=== PATIENT | male | born 1990 | race Caucasian/White ===

== ENCOUNTER 2019-03-07 16:14 | Emergency (ER) | payer BC, SELFPAY ==
[2019-03-07 16:40] VITALS: BP 122/81; PULSE 72; RESP 18; TEMP 36.9; O2SAT 99; BMI 26.4
--- NOTE | 2019-03-07 17:37 | XR_ITS ---
WS: [id number] PROCEDURE: XR chest 2V* [id number] CLINICAL INFORMATION: cp COMPARISON: None. FINDINGS: Heart: Normal cardiac silhouette. Lungs: Lungs are clear. No consolidation or pleural fluid. Bones: Normal visualized bony structures. XR/XR chest 2V* [id number] IMPRESSION: Normal chest
[2019-03-07 19:22] VITALS: PULSE 75; RESP 16; O2SAT 100
--- NOTE | 2019-03-07 19:25 | ED_ITS ---
Entered by Aleja Peters, acting as scribe for Alexandru Ying MD Mar 07, 2019 16:14 HPI - Chest Pain General: Chief Complaint: Chest Pain Stated Complaint: Chest pain, dizzy/n Time Seen by Provider: 03/07/19 19:23 Source: patient and RN notes reviewed Limitations: no limitations History of Present Illness: HPI narrative: 29 yo male presents to ED with complaints of L sided chest pain. He said the pain began at 0630 this morning and he has had the pain all day. He describes the pain as sharp and under his L breast. He said he has had L sided abdominal pain that is different from chest pain. The patient denies SOB. The patient has no PCP. MD complaint: chest pain Onset (ago): hour(s) (13) Timing of current episode: constant and still present Prior episodes: No Onset: during rest Pain location: left chest Pain radiation: none Severity: moderate Quality: sharp Relieving factors: nothing Exacerbating factors: nothing Associated symptoms: Reports no associated symptoms; Deny dyspnea, fever(s), nausea or vomiting Treatment prior to arrival: none Risk Factors: Coronary artery disease risk factors: none Thoracic aortic dissection risk factors: none Review of Systems Const: Denies: fever, chills, body aches or change in appetite Eyes: Denies: blurry vision or eye discomfort ENMT: Denies: throat pain or dental pain Card: Reports: chest pain Resp: Denies: shortness of breath GI: Denies: nausea, vomiting or diarrhea : Denies: painful urination Musc: Denies: neck pain or back pain Skin/Breast: Denies: rash Neuro: Denies: headache Psych: Denies: depression Christian/Lymph: Denies: easy bruising All/Imm: Denies: hives PFSH ED PFSH: Statuses (acute, chronic, etc) shown below reflect problem list status as previously entered and may not be historically accurate Social History Smoking and tobacco status: never smoked Physical Exam Const: COMMON NORMALS: no apparent distress, oriented x3 and healthy appearing HENMT: COMMON NORMALS: normocephalic and head/scalp atraumatic HEAD & SCALP: normocephalic and atraumatic Eye: COMMON NORMALS: PERRL and EOMs intact bilaterally PUPIL: Yes PERRL Neck/C-Spine: COMMON NORMALS: full ROM and supple Chest: COMMONS NORMALS: inspection of chest normal and palpation of chest normal Resp: COMMON NORMALS: normal respiratory effort, no retractions, no use of accessory muscles and clear to auscultation bilaterally AUSCULTATION: clear to auscultation bilaterally Cardio: COMMON NORMALS: regular rate, regular rhythm and no murmurs RATE: regular rate RHYTHM: regular rhythm GI: COMMON NORMALS: normal to inspection, nondistended, normoactive bowel sounds, soft to palpation, non-tender and no masses PALPATION: Yes soft Extremity: COMMON NORMALS: normal to inspection and full ROM Neuro: COMMON NORMALS: oriented x3, moves all extremities and no focal motor deficits Psych: COMMON NORMALS: mental status grossly normal, thought process normal and cooperative THOUGHT PROCESS: normal thought process Skin: COMMON NORMALS: no rashes or lesions noted and no wounds GENERAL SKIN EXAM: no rashes or lesions noted Course Vital Signs: Vital signs: Vital Signs Temperature 98.2 F 03/07/19 20:46 Pulse Rate 72 03/07/19 20:46 Respiratory Rate 16 03/07/19 20:46 Blood Pressure 133/84 03/07/19 20:46 Pulse Oximetry 98 03/07/19 20:46 MDM - Chest Pain MDM Narrative: Medical decision making narrative: Patient presents here with chest pain that is atypical in nature. Patient's heart score is 0 and he is young and healthy. Patient is well-appearing here. And initial troponin and EKG are normal. Patient is stable for discharge and is to follow-up with primary care doctor in 3 to 5 days and return to ER if worsening. Lab Data: Labs: Lab Results 03/07/19 03/07/19 03/07/19 Range/Units 19:40 19:40 19:40 WBC 5.3 (4.0-10.0) 10^3/ uL RBC 4.48 (4.1-5.3) 10^6/u L Hgb 13.9 (11.7-16.6) g/dL Hct 40.9 L (42.0-52.0) % MCV 91.3 (80-94) fL MCH 31.0 (28.0-34.0) pg MCHC 34.0 (30.0-36.0) g/dL RDW 11.4 L (12.1-15.1) % Plt Count 244 (130-400) 10^3/c mm MPV 10.3 (7.4-10.4) fL Neut % (Auto) 43.5 % Lymph % (Auto) 43.0 % [place] % (Auto) 10.9 % Eos % (Auto) 1.5 % Baso % (Auto) 0.9 % Neut # (Auto) 2.3 (1.8-7.7) 10^3/u L Lymph # (Auto) 2.3 (0.8-4.8) 10^3/u L [place] # (Auto) 0.6 (0.2-0.9) 10^3/u L Eos # (Auto) 0.1 (0.0-0.8) 10^3/u L Baso # (Auto) 0.1 (0.0-0.1) 10^3/u L Nucleated RBC % (a uto) 0 % Nucleated RBCs # 0.0 /100WBC Sodium 138 (136-145) mmol/L Potassium 4.2 (3.5-5.1) mmol/L Chloride 100 (98-107) mmol/L Carbon Dioxide 26 (22-29) mmol/L Anion Gap 16.2 (5-19) BUN 10 (6-20) mg/dL Creatinine 0.8 (0.7-1.2) mg/dL GFR Calculation 116.0 (90-130) mL/min Glucose 107 (74-109) mg/dL Calcium 10.0 (8.5-10.5) mg/dL Total Bilirubin 0.4 (0.15-1.2) mg/dL AST 19 (0-40) U/L ALT 18 (0-41) U/L Alkaline Phosphata se 51 (40-130) IU/L Troponin T Baselin e 9 (0-15) ng/mL Total Protein 7.7 (6.6-8.7) g/dL Albumin 4.8 (3.5-5.2) g/dL Globulin 2.9 (1.3-4.6) g/dL Imaging Data^: CXR: Attestation: I personally reviewed and interpreted this imaging study as follows: My impression: no acute abnormality EKG Data^: EKG 1: Attestation: I personally reviewed and interpreted this EKG as follows: EKG interpretation date: 03/07/19 EKG interpretation time: 20:13 Interpretation: nsr hr [address] or t wave abnormality qrs 113 qtc 393 Discharge Plan Discharge Patient Disposition: Home, Self-Care Clinical Impression: Chest pain Qualifiers: Chest pain type: unspecified Qualified Code(s): R07.9 - Chest pain, unspecified Condition: Stable Discharge Orders: Discharge Order (Routine); Ordered 03/07/19 Ordered By: Alexandru Ying Referrals: Blane Pichardo FNP [Family Provider] - Discharge Diet: Advance as tolerated Discharge Activity: Resume usual activity Patient Instructions: Chest Pain (ED) Discharge Date/Time: 03/07/19 20:47 Coding Level of Care Code ED Machine Inspector for Chg Fwd The documentation recorded by the Lorraine cespedes Valerie R, accurately ref lects the service I personally performed and the decisions made by Stepan de la rosa Korby, MD Mar 07, 2019 16:14
--- NOTE | 2019-03-07 19:26 | PC.NURSE ---
Patient reports that he began to get chest pain this morning in the left lower side of his chest. Patient states these pains began this morning. Patient reports that he has had dizziness that comes and goes. Patient also reports the pain is sharp. Patient has no other symptoms.
--- NOTE | 2019-03-07 19:29 | ECG_ITS ---
Measurements Intervals [place] Rate: 70 P: 26 NE: 150 QRS: 55 QRSD: 113 T: 18 QT: 372 QTc: 404 SINUS RHYTHM Incomplete right bundle branch block NONSPECIFIC ST & T-WAVE ABNORMALITY No previous ECG available for comparison Electronically Signed On 03-08-2019 16:17:06 JOB RECRUITER by aJmeel Rojo M.D. [id number]
[2019-03-07 19:54] LABS: Basophils # 0.1 10^3/uL (0.0-0.1); Basophils % 0.9 %; Eosinophils # 0.1 10^3/uL (0.0-0.8); Eosinophils % 1.5 %; Hematocrit 40.9 % (42.0-52.0); Hemoglobin 13.9 g/dL (11.7-16.6); Lymphocytes # 2.3 10^3/uL (0.8-4.8); Mean Corpuscular Volume 91.3 fL (80-94); Mean Platelet Volume 10.3 fL (7.4-10.4); Monocytes # 0.6 10^3/uL (0.2-0.9); Monocytes % 10.9 %; Neutrophils # 2.3 10^3/uL (1.8-7.7); Neutrophils % 43.5 %; Nucleated Red Blood Cells % 0 %; Platelet Count 244 10^3/cmm (130-400); Red Blood Count 4.48 10^6/uL (4.1-5.3); Red Cell Distribution Width 11.4 % (12.1-15.1); White Blood Count 5.3 10^3/uL (4.0-10.0)
[2019-03-07] MEDS: ketorolac 30 mg/mL INJ IM (20:06)
[2019-03-07 20:23] LABS: Alanine Aminotransferase 18 U/L (0-41); Albumin Level 4.8 g/dL (3.5-5.2); Alkaline Phosphatase 51 IU/L (40-130); Anion Gap 16.2 (5-19); Aspartate Amino Transferase 19 U/L (0-40); Blood Urea Nitrogen 10 mg/dL (6-20); Carbon Dioxide 26 mmol/L (22-29); Chloride 100 mmol/L (98-107); Globulin 2.9 g/dL (1.3-4.6); Glucose 107 mg/dL (74-109); Potassium 4.2 mmol/L (3.5-5.1); Sodium 138 mmol/L (136-145); Total Bilirubin 0.4 mg/dL (0.15-1.2); Total Protein 7.7 g/dL (6.6-8.7)
[2019-03-07 20:26] LABS: Troponin(5th) Baseline 9 ng/mL (0-15)
[2019-03-07 20:46] VITALS: BP 133/84; PULSE 72; RESP 16; TEMP 36.8; O2SAT 98
== END 2019-03-07 20:47 | disposition home or self-care (01) ==
PROVIDERS: Emergency Provider Emergency Medicine; Family Provider Nurse Practitioner Family
DX: R07.9 Chest pain, unspecified (principal)
CPT/HCPCS: 36415; 71046; 80053; 84484; 85025; 93005; 96372; 99281; 99283; J1885

== ENCOUNTER → 2020-03-16 13:53 | Outpatient (BNVA) | payer BC, SELFPAY | PROVIDERS: Family Provider Nurse Practitioner Family; Visit Provider Specialist | DX: K01.1 Impacted teeth (principal); K08.89 Other specified disorders of teeth and supporting structures; F17.220 Nicotine dependence, chewing tobacco, uncomplicated | CPT/HCPCS: 99202 ==

== ENCOUNTER → 2020-09-04 09:19 | Outpatient (BNVA) | payer BC, SELFPAY | PROVIDERS: Family Provider Nurse Practitioner Family; Visit Provider Specialist | DX: M79.7 Fibromyalgia (principal); Z71.89 Other specified counseling; F17.220 Nicotine dependence, chewing tobacco, uncomplicated | CPT/HCPCS: 20552; J1030; J3490 ==

== ENCOUNTER 2022-02-19 10:37 | Inpatient (IN) | payer OTHER, SELFPAY ==
[2022-02-19] VITALS (125 sets, daily range): BP systolic 92–138; BP diastolic 49–78; PULSE 85–101; RESP 19–27; TEMP 37.1–39.4; O2SAT 92–99; BMI 25.8; BMI 26.0
--- NOTE | 2022-02-19 11:00 | ECG_ITS ---
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 Measurements Intervals [place] Rate: 89 P: 25 OK: 143 QRS: 105 QRSD: 93 T: 8 QT: 323 QTc: 394 Interpretive Statements SINUS RHYTHM RIGHT AXIS DEVIATION [QRS AXIS > 100] POSSIBLE RIGHT VENTRICULAR CONDUCTION DELAY [RSR (QR) IN V1/V2] NONSPECIFIC ST ELEVATION [0.05+ mV ST ELEVATION] Compared to ECG 03/07/2019 20:13:03 Right-axis deviation now present ST (T wave) deviation now present Incomplete right bundle-branch block no longer present T-wave abnormality no longer present Electronically Signed On 02-19-2022 21:41:58 PHOTOGRAPHER SCIENTIFIC by Stacia Forrest M.D. [id number]
--- NOTE | 2022-02-19 11:28 | XRR_ITS ---
PROCEDURE INFORMATION: Exam: XR Chest Exam date and time: 02/19/2022 11:42 AM Age: 31 years old Clinical indication: Cough and fever and shortness of breath; Patient HX: History--sob, chest pains, cough, for 1 day TECHNIQUE: Imaging protocol: Radiologic exam of the chest. Views: 1 view. COMPARISON: CR XR chest 2V* [id number] 03/07/2019 7:00 PM FINDINGS: Lungs: Unremarkable. No consolidation. Pleural spaces: Unremarkable. No pleural effusion. No pneumothorax. Heart/Mediastinum: Unremarkable. No cardiomegaly. Bones/joints: Unremarkable. XR/XR chest 1V portable [id number] IMPRESSION: No acute findings.
--- NOTE | 2022-02-19 11:44 | CT_ITS ---
WS: [id number] CT HEAD TECHNIQUE: Noncontrast CT of the head obtained from the skullbase to the vertex. CLINICAL INFORMATION: syncopal episode and lethargic COMPARISON: None. DLP: 1084.[address] scans at [facility] [place] use at least one of these dose optimization techniques: automated e xposure control; mA and/or kV adjustment per patient size (includes targeted exams where dose is matc hed to clinical indication); or iterative reconstruction. FINDINGS: No evidence of intracranial hemorrhage or mass effect. Ventricular system and basal cisterns are plaza nt. No extra-axial fluid collections. No evidence of mass or mass effect. Normal galeas-white different iation. Small amount of fluid in the paranasal sinuses partially visualized. Mastoid air cells are well aerat ed. Small amount of fluid in the sphenoid sinus. Incidental slightly low-lying cerebellar tonsils. CT/CT head wo con* [id number] IMPRESSION: 1. No evidence of intracranial hemorrhage or mass effect. 2. Normal galeas-white differentiation. 3. Incidental slightly low-lying cerebellar tonsils. No hydrocephalus 4. Partially visualized mild sinusitis Notified TAI Woodruff at 02/19/2022 1:08 PM.
--- NOTE | 2022-02-19 11:46 | W.ED.FEVER ---
Documented by User: TAI Woodruff 02/20/22 12:45 HPI - Fever General: Chief Complaint: Fever Stated Complaint: chest pain Time Seen by Provider: 02/19/22 11:28 History of Present Illness: Patient is a 31-year-old male who comes to the ED with multiple complaints. Patient has been complaining of chest pain since last night, headache, syncopal episode and this morning he has developed fever, cough, nausea and vomiting. Patient was brought in by and she is helping provide history. Last night patient was had a roping event but denies any injury or trauma. When he got home he was complaining of not feeling good and he had a really bad headache and some chest pain. He had a syncopal episode while going to the bathroom and his found him slumped over on toilet and she thinks he was out for less than 5 minutes. He was complaining of having sharp pains in his chest and he refused to go to the ED last night and laid down to go to bed. This morning he woke up and he was still having really bad headache but he developed cough, nausea and vomiting and was unable to keep anything down. He also spiked a fever. says he has been very sleepy and lethargic this morning and states that he has hardly been able to stay awake over the last 2 hours. Patient did have some nasal congestion and drainage for the past week preceding the symptoms. Denies any past history of chest pain. Patient has not taken any ibuprofen or Tylenol this morning. Associated symptoms: Reports chest pain, headache(s), nasal congestion, nausea and vomiting; Deny abdominal pain, flank pain, chills, diarrhea or dysuria Review of Systems Const: Reports: fever(s); Denies: chills or fatigue Eyes: Denies: change in vision or eye discomfort ENMT: Reports: nasal discharge and nasal congestion; Denies: throat pain or odynophagia Card: Reports: chest pain; Denies: palpitations, edema, swelling of feet/ankles, dyspnea on exertion or orthopnea Resp: Reports: non-productive cough; Denies: dyspnea or productive cough GI: Reports: nausea and vomiting; Denies: abdominal pain, diarrhea, constipation or hematochezia : Denies: flank pain, difficulty urinating, dysuria or hematuria Musc: Denies: neck pain, back pain or extremity swelling Skin/Breast: Denies: rash or new lesions Neuro: Reports: headache(s); Denies: numbness in extremities or weakness in extremities PFSH ED PFSH: Medical History Chronic migraine without aura, intractable, with status migrainosus Fibromyositis Impacted third molar tooth Meningitis No pertinent past medical history Sinusitis Toxic metabolic encephalopathy Viral syndrome Surgical History No pertinent past surgical history No pertinent past surgical history Family History Other CAD (coronary artery disease) Hypertension Social History Smoking and tobacco status: current every day smoker smokeless tobacco Smokeless tobacco user: chewing tobacco Physical Exam Const: COMMON NORMALS: patient oriented x3 and alert GENERAL APPEARANCE: cooperative and lethargic ORIENTATION/CONSCIOUSNESS: Yes lethargic HENMT: COMMON NORMALS: normocephalic HEAD & SCALP: normocephalic MOUTH: Normal oral and palatal mucosa present THROAT: posterior oropharynx normal and uvula midline Neck/C-Spine: COMMON NORMALS: supple GENERAL: Yes normal visual inspection Resp: COMMON NORMALS: normal respiratory effort, No retractions, No use of accessory muscles and clear to auscultation bilaterally AUSCULTATION: clear to auscultation bilaterally Cardio: COMMON NORMALS: regular rate, regular rhythm, S1 normal heart sound present, S2 normal heart sound present, No gallops present (Cardio), No clicks present (Cardio), No murmurs present (Cardio) and Peripheral pulses 2+ throughout RATE: regular rate RHYTHM: regular rhythm HEART SOUNDS: S1 normal heart sound present and S2 normal heart sound present PERIPHERAL PULSES: Peripheral pulses 2+ throughout GI: COMMON NORMALS: Normal to inspection, nondistended, normoactive bowel sounds present, Soft to palpation, non-tender and no masses PALPATION: Yes Soft to palpation : COMMON NORMALS: Yes no CVA tenderness BLADDER/KIDNEY EXAM: Yes no CVA tenderness Back/Pelvis: COMMON NORMALS: no CVA tenderness Neuro: COMMON NORMALS: patient oriented x3 SENSORIUM/ORIENTATION: Yes alert and Yes lethargic GAIT: Yes Normal gait present Skin: GENERAL SKIN EXAM: dry skin Course Vital Signs: Vital signs: Vital Signs Temperature 97.3 F L 02/21/22 07:24 Pulse Rate 57 L 02/21/22 07:24 Respiratory Rate 18 02/21/22 07:24 Blood Pressure 110/71 02/21/22 08:00 Pulse Oximetry 98 02/21/22 07:24 Oxygen Delivery Me thod 02/20/22 13:00 MDM - Fever Medical Decision Making Patient is a 31-year-old male comes to the ED with fever and lethargic. Denies any recent head injuries. Last night patient complained of not feeling well and had a bad headache and a syncopal episode. This morning he woke up and he had a fever with nausea and vomiting and was very sleepy. Temperature 101.8 in triage rest of vitals are stable. Patient is very lethargic here in the ED and is hard to wake up. Rest of exam is benign. White blood cell count 11.8 but the rest of CBC and CMP were unremarkable. Blood cultures pending. Lactic 0.9. Chest x-ray showed no acute findings and head CT showed no acute findings. Troponin negative and EKG showed normal sinus rhythm and no ST segment elevation or depression seen. Patient was given a liter of IV fluids and nausea meds here in the ED. He had no other episodes of emesis here but patient continues to be very lethargic and has been sleeping the whole time here in the ED. No clinical improvement after fluids and nausea meds. I talked with Dr. Jackson about patient case and he agreed a spinal tap would be warranted given patient's condition. Dr. Jcakson performed spinal tap. Patient was started on IV Rocephin here in the ED with concerns for meningitis. Dr. Clemons contacted hospitalist and had patient put on observation. Lab Data I reviewed the patient's lab results. 02/19/22 12:01 02/19/22 12:01 Radiology Impressions Chest X-Ray 02/19/22 11:28 IMPRESSION: No acute findings. Head CT 02/19/22 11:44 IMPRESSION: 1. No evidence of intracranial hemorrhage or mass effect. 2. Normal galeas-white differentiation. 3. Incidental slightly low-lying cerebellar tonsils. No hydrocephalus 4. Partially visualized mild sinusitis Notified TAI Woodruff at 02/19/2022 1:08 PM. Head MRI 02/20/22 09:30 IMPRESSION: 1. No acute infarct or hemorrhage. 2. Mild bilateral maxillary sinus disease. 3. Very minimal small vessel ischemic changes in the white matter. Head/Brain Mag Res Venography 02/20/22 09:30 IMPRESSION: No acute thrombosis within the cerebral veins. Absent flow-void in the RIGHT transverse sinus is normal variation. No signal abnormality was noted on the MRI brain performed on the day of same day. Laboratory Results WBC 11.8 10^3/uL (4.0-10.0) H 02/19/22 12:01 RBC 4.47 10^6/uL (4.1-5.3) 02/19/22 12:01 Hgb 13.8 g/dL (11.7-16.6) 02/19/22 12:01 Hct 41.4 % (42.0-52.0) L 02/19/22 12:01 MCV 92.6 fl (80-94) 02/19/22 12:01 MCH 30.9 pg (28.0-34.0) 02/19/22 12:01 MCHC 33.3 g/dL (30.0-36.0) 02/19/22 12:01 RDW 11.7 % (12.1-15.1) L 02/19/22 12:01 Plt Count 209 10^3/cmm (130-400) 02/19/22 12:01 MPV 9.8 fL (7.4-10.4) 02/19/22 12:01 Neut % (Auto) 78.3 % 02/19/22 12:01 Lymph % (Auto) 7.8 % 02/19/22 12:01 [place] % (Auto) 9.2 % 02/19/22 12:01 Eos % (Auto) 4.0 % 02/19/22 12: Baso % (Auto) 0.4 % 02/19/22 12:01 Neut # (Auto) 9.22 10^3/uL (1.8-7.7) H 02/19/22 12:01 Lymph # (Auto) 0.9 10^3/uL (0.8-4.8) 02/19/22 12:01 [place] # (Auto) 1.1 10^3/uL (0.2-0.9) H 02/19/22 12:01 Eos # (Auto) 0.5 10^3/uL (0.0-0.8) 02/19/22 12:01 Baso # (Auto) 0.1 10^3/uL (0.0-0.1) 02/19/22 12:01 Nucleated RBC % (auto) 0 % 02/19/22 12:01 Nucleated RBCs # 0.0 /100WBC 02/19/22 12:01 D-Dimer 0.29 ug/mIFEU (0-0.59) 02/19/22 12:01 Sodium 136 mmol/L (136-145) 02/19/22 12:01 Potassium 3.8 mmol/L (3.5-5.1) 02/19/22 12:01 Chloride 100 mmol/L (98-107) 02/19/22 12:01 Carbon Dioxide 26 mmol/L (22-29) 02/19/22 12:01 Anion Gap 13.8 (5-19) 02/19/22 12:01 BUN 11 mg/dL (6-20) 02/19/22 12:01 Creatinine 0.9 mg/dL (0.7-1.2) 02/19/22 12:01 GFR Calculation 99.8 mL/min (90-130) 02/19/22 12:01 Glucose 94 mg/dL (65-115) 02/19/22 12:01 Calculated Osmolality 281 mOsm/kg (285-295) L 02/19/22 12:01 Lactic Acid 0.9 mmol/L (0.5-2.2) 02/19/22 12:01 Calcium 9.1 mg/dL (8.5-10.5) 02/19/22 12:01 Total Bilirubin 0.9 mg/dL (0.15-1.2) 02/19/22 12:01 AST 14 U/L (0-40) 02/19/22 12:01 ALT 12 U/L (0-41) 02/19/22 12:01 Alkaline Phosphatase 55 U/L (40-130) 02/19/22 12:01 Troponin T Baseline 6 ng/L (0-15) 02/19/22 12:01 Troponin T 120 Minute 6.41 ng/L (0-15) 02/19/22 14:18 Delta Troponin T 0.41 ABS# (0-10) 02/19/22 14:18 Troponin T Hi Sens 6Hr 6.00 ng/L (0-15) 02/19/22 17:42 Troponin T Hi Sens 6Hr Delta 0 ng/L (0-12) 02/19/22 17:42 Total Protein 7.5 g/dL (6.6-8.7) 02/19/22 12:01 Albumin 4.4 g/dL (3.5-5.2) 02/19/22 12:01 Globulin 3.1 g/dL (1.3-4.6) 02/19/22 12:01 Vitamin B12 431 pg/mL (232-1245) 02/19/22 21:08 Procalcitonin 0.13 ng/mL (0-0.5) 02/19/22 17:54 TSH 0.68 uIU/mL (0.27-4.20) 02/19/22 21:08 Urine Color Yellow (Yellow) 02/19/22 19:34 Urine Appearance Clear (CLEAR) 02/19/22 19:34 Urine pH 6 (5-7) 02/19/22 19:34 Ur Specific [place] 1.020 (1.005-1.030) 02/19/22 19:34 Urine Protein Neg (Negative) 02/19/22 19:34 Urine Glucose (UA) Norm (Normal) 02/19/22 19:34 Urine Ketones Negative (Negative) 02/19/22 19:34 Urine Blood Neg (Negative) 02/19/22 19:34 Urine Nitrate Negative (Negative) 02/19/22 19:34 Urine Bilirubin Neg (Negative) 02/19/22 19:34 Urine Urobilinogen 4 mg/dL (Negative) H 02/19/22 19:34 Ur Leukocyte Esterase Negative (Negative) 02/19/22 19:34 CSF Appearance Clear (CLEAR) 02/19/22 15:29 CSF Color Colorless (COLORLESS) 02/19/22 15:29 CSF Specific [place] 1.015 02/19/22 15:29 CSF WBC 2 /uL (0-5) 02/19/22 15:29 CSF RBC 0 10^3/uL (0-0) 02/19/22 15:29 CSF Mononuclear # Auto 0.002 10^3/uL (50-90) L 02/19/22 15:29 CSF Mononuclear WBCs % 100 % (50-90) H 02/19/22 15:29 CSF Polynuclear WBCs # 0.000 10^3/uL (0-10) 02/19/22 15:29 CSF Polynuclear WBCs % 0 % (0-10) 02/19/22 15:29 CSF Glucose 61 mg/dL (40-70) 02/19/22 15:29 CSF Total Protein 30 mg/dL (15-45) 02/19/22 15:29 CSF VDRL Non-reactive 02/19/22 15:29 CSF Lyme IgG (Immblot) No bands detected 02/19/22 15:29 CSF Lyme IgM (Immblot) No bands detected 02/19/22 15:29 CSF [facility] IgG <1:1 02/19/22 15:[address] [facility] IgM IFA <1:1 02/19/22 15:29 [address] [facility] Enceph Intrp See note 02/19/22 15:29 Urine Opiates Screen Positive ng/mL (Negative) H 02/19/22 19:34 Ur Barbiturates Screen Negative ng/mL (Negative) 02/19/22 19:34 Ur Phencyclidine Scrn Negative ng/mL (Negative) 02/19/22 19:34 Ur Amphetamines Screen Negative ng/mL (Negative) 02/19/22 19:34 U Benzodiazepines Scrn Negative ng/mL (Negative) 02/19/22 19:34 Urine Cocaine Screen Negative ng/mL (Negative) 02/19/22 19:34 U Marijuana (THC) Screen Negative ng/mL (Negative) 02/19/22 19:34 MOG Ab Screen IgG Negative (NEGATIVE) 02/19/22 15:29 Lyme IgG Bands Present Not Reportable 02/19/22 15:29 Lyme IgM Bands Present Not Reportable 02/19/22 15:29 Influenza Type A Ag negative (Negative) 02/19/22 11:45 Influenza Type B Ag negative (Negative) 02/19/22 11:45 SARS-CoV-2 Ag (Rapid) negative (Negative) 02/19/22 11:45 EKG Data EKG 1: I personally reviewed and interpreted this EKG as follows: EKG interpretation date: 02/19/22 Interpretation: Normal sinus rhythm, no ST segment elevation or depression seen. 89 bpm. Discharge Plan Discharge Patient Disposition: Admitted As Inpatient Admit Provider: Aaron Ratliff Clinical Impression: Sinusitis, Fever of unknown origin, Encephalitis Condition: Stable Discharge Diet: Advance as tolerated Discharge Activity: Increase activity as tolerated Sign Out Sign Out Data: Patient Sign Out occurred on 02/19/22 at 15:40. Patient's care was discussed, and care was transferred from to Marty Jackson DO. Patient Sign Out occurred on 02/19/22 at 17:41. Patient's care was discussed, and care was transferred from to Marty Jackson DO. Coding Level of Care Code ED [employer] Helper for Chg Fwd Exam Comprehensive Documented by User: Marty Jackson DO 03/04/22 06:37 HPI - Fever General: Chief Complaint: Fever Stated Complaint: chest pain Time Seen by Provider: 02/19/22 11:28 Source: patient and family Mode of arrival: ambulatory History of Present Illness: Patient is a 31-year-old male who comes to the ED with multiple complaints. Patient has been complaining of chest pain since last night, headache, syncopal episode and this morning he has developed fever, cough, nausea and vomiting. Patient was brought in by and she is helping provide history. Last night patient was had a roping event but denies any injury or trauma. When he got home he was complaining of not feeling good and he had a really bad headache and some chest pain. He had a syncopal episode while going to the bathroom and his found him slumped over on toilet and she thinks he was out for less than 5 minutes. He was complaining of having sharp pains in his chest and he refused to go to the ED last night and laid down to go to bed. This morning he woke up and he was still having really bad headache but he developed cough, nausea and vomiting and was unable to keep anything down. He also spiked a fever. says he has been very sleepy and lethargic this morning and states that he has hardly been able to stay awake over the last 2 hours. Patient did have some nasal congestion and drainage for the past week preceding the symptoms. Denies any past history of chest pain. Patient has not taken any ibuprofen or Tylenol this morning. Patient initially seen and evaluated by midlevel. 32-year-old male who had multiple complaints biggest complaint was a headache to begin the night before he is febrile with a temp near 102 somewhat lethargic he was found slumped over by his . He also had some chest pain. Symptoms began yesterday and progressively worsened until he presented to the emergency room this morning. He is lethargic on arrival here and is needs to be arouse each time he is examined or asked questions for history. MD elicited complaint: fever, malaise and weakness Onset (ago): day(s) (1) Exacerbating factors: nothing Relieving factors: nothing Associated symptoms: Reports chills, chest pain, confusion, cough, headache(s), myalgias, nasal congestion, nausea and rhinorrhea; Deny abdominal pain, flank pain, diarrhea, dysuria or vomiting Treatments prior to arrival fever: acetaminophen and ibuprofen Review of Systems Const: Reports: fever(s), chills, fatigue and malaise ENMT: Reports: nasal congestion; Denies: throat pain Card: Reports: chest pain; Denies: palpitations, irregular heart rhythm or edema Resp: Reports: non-productive cough; Denies: dyspnea or productive cough GI: Reports: nausea; Denies: abdominal pain, vomiting or diarrhea : Denies: flank pain, difficulty urinating, dysuria, urinary frequency or urinary urgency Musc: Denies: neck pain Skin/Breast: Denies: rash Neuro: Reports: headache(s), weakness in extremities and confusion PFSH ED PFSH: Medical History Chronic migraine without aura, intractable, with status migrainosus Fibromyositis Impacted third molar tooth Meningitis No pertinent past medical history Sinusitis Toxic metabolic encephalopathy Viral syndrome Surgical History No pertinent past surgical history No pertinent past surgical history Family History Other CAD (coronary artery disease) Hypertension Social History Smoking and tobacco status: current every day smoker smokeless tobacco Smokeless tobacco user: chewing tobacco Physical Exam Const: GENERAL APPEARANCE: cooperative and comfortable ORIENTATION/CONSCIOUSNESS: Yes awake HENMT: COMMON NORMALS: normocephalic, atraumatic, hearing grossly normal bilaterally, external ears normal, EAC's normal, TM's normal bilaterally, moist oral mucous membranes and oropharynx normal HEAD & SCALP: normocephalic and atraumatic NOSE: Nasal discharge present mucoid EXTERNAL EAR: Yes external ears normal EXTERNAL AUDITORY CANAL: EAC's normal TYMPANIC MEMBRANE: TM's normal bilaterally Eye: COMMON NORMALS: Equal, round and reactive pupils present, EOMs intact bilaterally, conjunctivae normal and no scleral icterus CONJUNCTIVA: Yes conjunctivae normal PUPIL: Yes Equal, round and reactive pupils present Neck/C-Spine: COMMON NORMALS: full ROM, no lymphadenopathy, supple and no JVD Lymph: LYMPHATIC: no lymphadenopathy noted and no lymphedema noted Resp: COMMON NORMALS: normal respiratory effort, No retractions, No use of accessory muscles and clear to auscultation bilaterally AUSCULTATION: clear to auscultation bilaterally Cardio: COMMON NORMALS: no JVD, regular rate, regular rhythm and No murmurs present (Cardio) RATE: regular rate RHYTHM: regular rhythm GI: COMMON NORMALS: Soft to palpation and No hepatosplenomegaly present AUSCULTATION: Yes normoactive bowel sounds PALPATION: Yes Soft to palpation, No Tenderness to palpation present (GI), No Guarding due to palpation present (GI) and Yes No hepatosplenomegaly present Extremity: COMMON NORMALS: normal to inspection, capillary refill normal, no clubbing, cyanosis or edema, no calf tenderness and no pedal edema Skin: COMMON NORMALS: no rashes or lesions noted GENERAL SKIN EXAM: no rashes or lesions noted Procedures Lumbar Puncture Time Out Performed: Yes Patient Position: left lateral decubitus Skin Prep: Povidone-Iodine 1% Local Anesthetic: lidocaine 1% Amount of anesthesia used (mL): 4 Spinal Needle Gauge: Other (25) Interspace Used: L3-L4 Fluid Initially Obtained: clear Complications: none Course Vital Signs: Vital signs: Vital Signs Temperature 97.3 F L 02/21/22 07:24 Pulse Rate 57 L 02/21/22 07:24 Respiratory Rate 18 02/21/22 07:24 Blood Pressure 110/71 02/21/22 08:00 Pulse Oximetry 98 02/21/22 07:24 Oxygen Delivery Me thod 02/20/22 13:00 MDM - Fever Medical Decision Making Patient is a 31-year-old male comes to the ED with fever and lethargic. Denies any recent head injuries. Last night patient complained of not feeling well and had a bad headache and a syncopal episode. This morning he woke up and he had a fever with nausea and vomiting and was very sleepy. Temperature 101.8 in triage rest of vitals are stable. Patient is very lethargic here in the ED and is hard to wake up. Rest of exam is benign. White blood cell count 11.8 but the rest of CBC and CMP were unremarkable. Blood cultures pending. Lactic 0.9. Chest x-ray showed no acute findings and head CT showed no acute findings. Troponin negative and EKG showed normal sinus rhythm and no ST segment elevation or depression seen. Patient was given a liter of IV fluids and nausea meds here in the ED. He had no other episodes of emesis here but patient continues to be very lethargic and has been sleeping the whole time here in the ED. No clinical improvement after fluids and nausea meds. I talked with Dr. Jackson about patient case and he agreed a spinal tap would be warranted given patient's condition. Dr. Jackson performed spinal tap. Patient was started on IV Rocephin here in the ED with concerns for meningitis. Dr. Clemons contacted hospitalist and had patient put on observation. Lumbar tap completed as above was clear. Admit patient at this time for metabolic encephalopathy cause unclear. Discussed with hospitalist they will recommended covering with antibiotics until results of the lumbar tap are completed. Preliminaries are normal to this point. Will admit to the ICU. Medical Records I reviewed the patient's medical records. Lab Data I reviewed the patient's lab results. 02/19/22 12:01 02/19/22 12:01 Radiology Impressions Chest X-Ray 02/19/22 11:28 IMPRESSION: No acute findings. Head CT 02/19/22 11:44 IMPRESSION: 1. No evidence of intracranial hemorrhage or mass effect. 2. Normal galeas-white differentiation. 3. Incidental slightly low-lying cerebellar tonsils. No hydrocephalus 4. Partially visualized mild sinusitis Notified TAI Woodruff at 02/19/2022 1:08 PM. Head MRI 02/20/22 09:30 IMPRESSION: 1. No acute infarct or hemorrhage. 2. Mild bilateral maxillary sinus disease. 3. Very minimal small vessel ischemic changes in the white matter. Head/Brain Mag Res Venography 02/20/22 09:30 IMPRESSION: No acute thrombosis within the cerebral veins. Absent flow-void in the RIGHT transverse sinus is normal variation. No signal abnormality was noted on the MRI brain performed on the day of same day. Laboratory Results WBC 11.8 10^3/uL (4.0-10.0) H 02/19/22 12:01 RBC 4.47 10^6/uL (4.1-5.3) 02/19/22 12:01 Hgb 13.8 g/dL (11.7-16.6) 02/19/22 12:01 Hct 41.4 % (42.0-52.0) L 02/19/22 12:01 MCV 92.6 fl (80-94) 02/19/22 12:01 MCH 30.9 pg (28.0-34.0) 02/19/22 12:01 MCHC 33.3 g/dL (30.0-36.0) 02/19/22 12:01 RDW 11.7 % (12.1-15.1) L 02/19/22 12:01 Plt Count 209 10^3/cmm (130-400) 02/19/22 12:01 MPV 9.8 fL (7.4-10.4) 02/19/22 12:01 Neut % (Auto) 78.3 % 02/19/22 12:01 Lymph % (Auto) 7.8 % 02/19/22 12:01 [place] % (Auto) 9.2 % 02/19/22 12:01 Eos % (Auto) 4.0 % 02/19/22 12:01 Baso % (Auto) 0.4 % 02/19/22 12:01 Neut # (Auto) 9.22 10^3/uL (1.8-7.7) H 02/19/22 12:01 Lymph # (Auto) 0.9 10^3/uL (0.8-4.8) 02/19/22 12:01 [place] # (Auto) 1.1 10^3/uL (0.2-0.9) H 02/19/22 12:01 Eos # (Auto) 0.5 10^3/uL (0.0-0.8) 02/19/22 12:01 Baso # (Auto) 0.1 10^3/uL (0.0-0.1) 02/19/22 12:01 Nucleated RBC % (auto) 0 % 02/19/22 12:01 Nucleated RBCs # 0.0 /100WBC 02/19/22 12:01 D-Dimer 0.29 ug/mIFEU (0-0.59) 02/19/22 12:01 Sodium 136 mmol/L (136-145) 02/19/22 12:01 Potassium 3.8 mmol/L (3.5-5.1) 02/19/22 12:01 Chloride 100 mmol/L (98-107) 02/19/22 12:01 Carbon Dioxide 26 mmol/L (22-29) 02/19/22 12:01 Anion Gap 13.8 (5-19) 02/19/22 12:01 BUN 11 mg/dL (6-20) 02/19/22 12:01 Creatinine 0.9 mg/dL (0.7-1.2) 02/19/22 12:01 GFR Calculation 99.8 mL/min (90-130) 02/19/22 12:01 Glucose 94 mg/dL (65-115) 02/19/22 12:01 Calculated Osmolality 281 mOsm/kg (285-295) L 02/19/22 12:01 Lactic Acid 0.9 mmol/L (0.5-2.2) 02/19/22 12:01 Calcium 9.1 mg/dL (8.5-10.5) 02/19/22 12:01 Total Bilirubin 0.9 mg/dL (0.15-1.2) 02/19/22 12:01 AST 14 U/L (0-40) 02/19/22 12:01 ALT 12 U/L (0-41) 02/19/22 12:01 Alkaline Phosphatase 55 U/L (40-130) 02/19/22 12:01 Troponin T Baseline 6 ng/L (0-15) 02/19/22 12:01 Troponin T 120 Minute 6.41 ng/L (0-15) 02/19/22 14:18 Delta Troponin T 0.41 ABS# (0-10) 02/19/22 14:18 Troponin T Hi Sens 6Hr 6.00 ng/L (0-15) 02/19/22 17:42 Troponin T Hi Sens 6Hr Delta 0 ng/L (0-12) 02/19/22 17:42 Total Protein 7.5 g/dL (6.6-8.7) 02/19/22 12:01 Albumin 4.4 g/dL (3.5-5.2) 02/19/22 12:01 Globulin 3.1 g/dL (1.3-4.6) 02/19/22 12:01 Vitamin B12 431 pg/mL (232-1245) 02/19/22 21:08 Procalcitonin 0.13 ng/mL (0-0.5) 02/19/22 17:54 TSH 0.68 uIU/mL (0.27-4.20) 02/19/22 21:08 Urine Color Yellow (Yellow) 02/19/22 19:34 Urine Appearance Clear (CLEAR) 02/19/22 19:34 Urine pH 6 (5-7) 02/19/22 19:34 Ur Specific [place] 1.020 (1.005-1.030) 02/19/22 19:34 Urine Protein Neg (Negative) 02/19/22 19:34 Urine Glucose (UA) Norm (Normal) 02/19/22 19:34 Urine Ketones Negative (Negative) 02/19/22 19:34 Urine Blood Neg (Negative) 02/19/22 19:34 Urine Nitrate Negative (Negative) 02/19/22 19:34 Urine Bilirubin Neg (Negative) 02/19/22 19:34 Urine Urobilinogen 4 mg/dL (Negative) H 02/19/22 19:34 Ur Leukocyte Esterase Negative (Negative) 02/19/22 19:34 CSF Appearance Clear (CLEAR) 02/19/22 15:29 CSF Color Colorless (COLORLESS) 02/19/22 15:29 CSF Specific [place] 1.015 02/19/22 15:29 CSF WBC 2 /uL (0-5) 02/19/22 15:29 CSF RBC 0 10^3/uL (0-0) 02/19/22 15:29 CSF Mononuclear # Auto 0.002 10^3/uL (50-90) L 02/19/22 15:29 CSF Mononuclear WBCs % 100 % (50-90) H 02/19/22 15:29 CSF Polynuclear WBCs # 0.000 10^3/uL (0-10) 02/19/22 15:29 CSF Polynuclear WBCs % 0 % (0-10) 02/19/22 15:29 CSF Glucose 61 mg/dL (40-70) 02/19/22 15: CSF Total Protein 30 mg/dL (15-45) 02/19/22 15:29 CSF VDRL Non-reactive 02/19/22 15:29 CSF Lyme IgG (Immblot) No bands detected 02/19/22 15:29 CSF Lyme IgM (Immblot) No bands detected 02/19/22 15:29 CSF [facility] IgG <1:1 02/19/22 15:[address] [facility] IgM IFA <1:1 02/19/22 15:29 CSF [facility] Enceph Intrp See note 02/19/22 15:29 Urine Opiates Screen Positive ng/mL (Negative) H 02/19/22 19:34 Ur Barbiturates Screen Negative ng/mL (Negative) 02/19/22 19:34 Ur Phencyclidine Scrn Negative ng/mL (Negative) 02/19/22 19:34 Ur Amphetamines Screen Negative ng/mL (Negative) 02/19/22 19:34 U Benzodiazepines Scrn Negative ng/mL (Negative) 02/19/22 19:34 Urine Cocaine Screen Negative ng/mL (Negative) 02/19/22 19:34 U Marijuana (THC) Screen Negative ng/mL (Negative) 02/19/22 19:34 MOG Ab Screen IgG Negative (NEGATIVE) 02/19/22 15:29 Lyme IgG Bands Present Not Reportable 02/19/22 15:29 Lyme IgM Bands Present Not Reportable 02/19/22 15:29 Influenza Type A Ag negative (Negative) 02/19/22 11:45 Influenza Type B Ag negative (Negative) 02/19/22 11:45 SARS-CoV-2 Ag (Rapid) negative (Negative) 02/19/22 11:45 Discharge Plan Discharge Patient Disposition: Admitted As Inpatient Admit Provider: Aaron Ratliff Clinical Impression: Sinusitis, Fever of unknown origin, Encephalitis Condition: Stable Discharge Diet: Advance as tolerated Discharge Activity: Increase activity as tolerated Sign Out Sign Out Data: Patient Sign Out occurred on 02/19/22 at 15:40. Patient's care was discussed, and care was transferred from to [facility] . Patient Sign Out occurred on 02/19/22 at 17:41. Patient's care was discussed, and care was transferred from to [facility] . Coding Level of Care Code ED Prospecting Driller Helper for Jimmie Fwmaddy Exam Comprehensive
[2022-02-19 12:07] LABS: Influenza A by IFA negative (Negative); Influenza B by IFA negative (Negative)
[2022-02-19 12:10] LABS: SARS Covid-2 Antigen negative (Negative)
[2022-02-19] MEDS: ketorolac 30 mg/mL INJ IVP (12:15)
[2022-02-19] MEDS: ondansetron 2 mg/ML SDV 2 mL 4 MG IVP (12:15)
[2022-02-19] MEDS: sodium chloride 0.9% 1,000 ML 999 ML IV (12:16)
[2022-02-19 12:18] LABS: Basophils # 0.1 10^3/uL (0.0-0.1); Basophils % 0.4 %; Eosinophils # 0.5 10^3/uL (0.0-0.8); Hematocrit 41.4 % (42.0-52.0); Hemoglobin 13.8 g/dL (11.7-16.6); Lymphocytes # 0.9 10^3/uL (0.8-4.8); Lymphocytes % 7.8 %; Mean Corpuscular HGB Conc 33.3 g/dL (30.0-36.0); Mean Corpuscular Hemoglobin 30.9 pg (28.0-34.0); Mean Corpuscular Volume 92.6 fl (80-94); Mean Platelet Volume 9.8 fL (7.4-10.4); Monocytes # 1.1 10^3/uL (0.2-0.9); Monocytes % 9.2 %; Neutrophils # 9.22 10^3/uL (1.8-7.7); Neutrophils % 78.3 %; Nucleated Red Blood Cells % 0 %; Platelet Count 209 10^3/cmm (130-400); Red Blood Count 4.47 10^6/uL (4.1-5.3); Red Cell Distribution Width 11.7 % (12.1-15.1); White Blood Count 11.8 10^3/uL (4.0-10.0)
[2022-02-19 12:40] LABS: Troponin(5th) Baseline 6 ng/L (0-15)
[2022-02-19 12:41] LABS: Alanine Aminotransferase 12 U/L (0-41); Albumin Level 4.4 g/dL (3.5-5.2); Alkaline Phosphatase 55 U/L (40-130); Anion Gap 13.8 (5-19); Aspartate Amino Transferase 14 U/L (0-40); Blood Urea Nitrogen 11 mg/dL (6-20); Calcium 9.1 mg/dL (8.5-10.5); Carbon Dioxide 26 mmol/L (22-29); Chloride 100 mmol/L (98-107); Globulin 3.1 g/dL (1.3-4.6); Glomerular Filtration Rate 99.8 mL/min (90-130); Glucose 94 mg/dL (65-115); Osmolality Calculated 281 mOsm/kg (285-295); Potassium 3.8 mmol/L (3.5-5.1); Sodium 136 mmol/L (136-145); Total Bilirubin 0.9 mg/dL (0.15-1.2); Total Protein 7.5 g/dL (6.6-8.7)
[2022-02-19 12:42] LABS: Lactic Sepsis W/Reflex 0.9 mmol/L (0.5-2.2)
--- NOTE | 2022-02-19 13:44 | ECG_ITS ---
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 Measurements Intervals [place] Rate: 76 P: 19 NH: 159 QRS: 104 QRSD: 111 T: 6 QT: 374 QTc: 422 Interpretive Statements SINUS RHYTHM RIGHT AXIS DEVIATION [QRS AXIS > 100] POSSIBLE RIGHT VENTRICULAR CONDUCTION DELAY [RSR (QR) IN V1/V2] NONSPECIFIC ST & T-WAVE ABNORMALITY Compared to ECG 02/19/2022 11:05:40 T-wave abnormality now present ST (T wave) deviation no longer present Electronically Signed On 02-19-2022 21:48:44 PAVER INSTALLER by Stacia Forrest M.D. [id number]
[2022-02-19 14:39] LABS: Troponin 5 2HR 6.41 ng/L (0-15)
[2022-02-19 15:09] LABS: Troponin 5 2HR Delta 0.41 ABS# (0-10)
[2022-02-19] MEDS: cefTRIAXone 2,000 MG in sodium chloride 0.9% (plus) 50 ML 100 MG IV (16:10)
[2022-02-19 16:29] LABS: Appearance CSF CLEAR (CLEAR); Color CSF COLORLESS (COLORLESS)
[2022-02-19 16:32] LABS: Cyto Order Verification No Order
[2022-02-19 16:38] LABS: CSF Specific Gravity 1.015
[2022-02-19 16:41] LABS: CSF Mononuclear # 0.002 10^3/uL (50-90); Mononuclear WBC CSF % 100 % (50-90); Polynuclear WBC CSF % 0 % (0-10); Red Blood Cell CSF 0 10^3/uL (0-0); White Blood Cell CSF 2 /uL (0-5)
[2022-02-19] MEDS: morphine 4 mg/mL SDV 1 mL 2 MG IVP (17:37)
--- NOTE | 2022-02-19 17:47 | P.HP_ITS ---
Providers/Chief Complaint Chief Complaint: chest pain History of Present Illness Sandeep Aldana is a 31 year old male does not have significant past medical surgical history presented to the hospital with chief complaint of worsening of fatigue, confusion, fever. Patient is stating that he is not sure what happened most of the history has been taken from his . He came from horse riding event & started experiencing fatigue and lethargy. He told his family that he is not feeling right but did not want to go to the ER for the evaluation. last night after horse riding event he started experiencing headache along fatigue, at home in the bathroom his 3-year-old daughter old found him hunched over the toilet seat. When checked on him she did not notice strokelike features however saliva was drooling and he was lethargic, it was hard for him to stay awake. Then later in the night he experienced chest pain as well which he is describing as sharp pain, lasted 3 mins without diaphoresis or nausea. 5 yrs ago he was evaluated for chest pain and had a stress test done as well he is not sure about the results. 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 Finally agreed to come to the ER for further evaluation. As per the they had to sternal rub him in order to wake him up, they did not take temperature however his body was pretty warm and she could tell that he was febrile. Patient is stating that before this whole sudden event he has been suffering with sinus congestion, runny nose, flulike symptoms and experienced a few episodes of diarrhea as well.. In the ER CSF panel was requested for possible meningitis, he was started on ceftriaxone and vancomycin, he is febrile with leukocytosis however there is no endorgan damage no signs of sepsis Drug screen, UA unremarkable He was admitted to the ICU Review of Systems Const: Reports: fever(s), chills, body aches and fatigue Eyes: Denies: change in vision ENMT: Denies: throat pain Card: Denies: chest pain Resp: Denies: dyspnea GI: Denies: abdominal pain : Denies: flank pain Musc: Denies: neck pain Skin/Breast: Denies: rash Neuro: Reports: headache(s) Psych: Denies: anxiety Endo: Denies: polyuria Christian/Lymph: Denies: easy bruising All/Imm: Denies: urticaria Medications/Allergies Home Medications Medication Instructions Recorded Confirmed Last Taken Type acetaminophen 325 mg tablet 325 mg PO BID PRN Fever 02/19/22 02/19/22 02/18/22 History (Tylenol) doxylamin 12.5 mg-PSE 10 mg-DM 20 1 packet PO Q4H PRN Sinus Symptoms 02/19/22 02/19/22 02/18/22 History mg-acetaminophen 650 mg oral pwdr pk ([place] Plus Cold-Flu) Allergies Allergy/AdvReac Type Severity Reaction Status Date / Time Sulfa (Sulfonamide Allergy Unknown Verified 09/04/20 09:25 Antibiotics) PFSH Acute PFSH: Medical History Fibromyositis Impacted third molar tooth No pertinent past medical history Surgical History No pertinent past surgical history No pertinent past surgical history Family History Other CAD (coronary artery disease) Hypertension Social History Smoking and tobacco status: current every day smoker smokeless tobacco Smokeless tobacco user: chewing tobacco Vitals/I&O/Wt Last Vital Signs Temp 98.7 F 02/19/22 13:57 Pulse 90 02/19/22 10:48 Resp 24 H 02/19/22 10:48 BP 102/63 02/19/22 16:00 Pulse Ox 97 02/19/22 15:55 O2 Del Method 02/19/22 10:48 02/19/22 02/19/22 02/19/22 06:59 14:59 22:59 Intake Total 1000 / 1000 50 / 1050 Balance 1000 / 1000 50 / 1050 Weight last 48 hrs Weight 88.723 kg Physical Exam Narrative: Patient is very lethargic and fatigued however able to answer my questions simple questions is at the bedside He appears toxic No neck rigidity Kernig emergency sign negative Nonfocal neuro exam Hyperreflexia of lower extremities Sensations intact S1, S2 Hemodynamically stable Doing well on room air Abdomen soft No skin rash Data 02/19/22 12:01 02/19/22 12:01 Micro: Microbiology 02/19/22 12:01 Blood Culture - Preliminary Blood SPECIMEN COLLECTED 02/19/22 12:01 Blood Culture - Preliminary Blood SPECIMEN COLLECTED A&P Assessment and plan (1) Meningitis: Plan Acute metabolic encephalopathy related to possible meningitis Start empirical treatment vancomycin, ceftriaxone along with doxycycline however patient has not reported any tick bite I would not give Decadron because he has already received antibiotics before my evaluation in the ER No source of infection has been identified so far, UA and drug screen is pending Admit to ICU Close monitoring for neuro signs For now able to protect airways GCS 15 Nonfocal neuro exam AIDP? Patient was having viral symptoms along diarrhea before he start experiencing h eadache and febrile episodes Will check CSF protein and white count Will discuss case with Dr. Parsons in the morning Patient does not have typical meningitis signs clinically, requested MRI head in the morning Regular diet DVT prophylaxis on board Continue normal saline maintenance rate Attestations Medical Necessity Statement*: More than 2 midnights anticipated Time Spent in Patient Care: 40 Coding Level of Care Code Acute All Source Collection Manager for Jimmie Harrison Diagnoses Meningitis G03.9
[2022-02-19] MEDS: vancomycin 1,000 MG in sodium chloride 0.9% 250 ML 250 MG IV (18:10)
[2022-02-19 18:23] LABS: D Dimer 0.29 ug/mIFEU (0-0.59)
--- NOTE | 2022-02-19 18:59 | PC.NURSE ---
attempted report, informed pt may be going to ICU
--- NOTE | 2022-02-19 19:00 | ECG_ITS ---
[facility] Test Date: 2022-02-19 Pat Name: Sandeep Aldana Department: Room: 278 Gender: Male Bridges Supervisor: : 1990 Requested By: Chuy Dejesus Order Number: [id number] Miley MD: Stacia Forrest M.D. Measurements Intervals [place] Rate: 86 P: 53 IN: 168 QRS: 97 QRSD: 102 T: 11 QT: 343 QTc: 412 Interpretive Statements SINUS RHYTHM BORDERLINE RIGHT AXIS DEVIATION [QRS AXIS > 90] POSSIBLE RIGHT VENTRICULAR CONDUCTION DELAY [RSR (QR) IN V1/V2] NONSPECIFIC ST & T-WAVE ABNORMALITY Compared to ECG 02/19/2022 13:59:43 No significant changes Electronically Signed On 02-19-2022 21:49:08 CLOUD ENGAGEMENT PARTNER by Stacia Forrest M.D. [id number]
[2022-02-19 19:09] LABS: Troponin 5 6HR Delta 0 ng/L (0-12)
[2022-02-19 19:42] LABS: Add Urine Microscopic? NO; Charge for UA Resulting for Rev
[2022-02-19 19:46] LABS: Urine Appearance Clear (CLEAR); Urine Color Yellow (Yellow)
[2022-02-19 19:47] LABS: Bilirubin Urine Neg (Negative); Blood Urine Neg (Negative); Glucose Urine UA Norm (Normal); Ketones Urine Negative (Negative); Leukocyte Esterase Urine Negative (Negative); Nitrate Urine Negative (Negative); Protein Urine Neg (Negative); Urobilinogen Urine 4 mg/dL (Negative); pH Urine 6 (5-7)
[2022-02-19 19:53] LABS: Procalcitonin 0.13 ng/mL (0-0.5)
--- NOTE | 2022-02-19 20:25 | PC.NURSE ---
Pt report attempted, nurse unavailable.
--- NOTE | 2022-02-19 21:22 | PC.NURSE ---
Report called to Deepali WILKES
[2022-02-19 21:31] LABS: Amphetamines Screen Urine Negative (Negative); Barbiturates Screen Urine Negative (Negative); Benzodiazepines Screen Urine Negative (Negative); Cocaine Screen Urine Negative (Negative); Opiate Screen Urine Positive (Negative); PCP Screen Urine Negative (Negative); THC Screen Urine Negative (Negative)
[2022-02-19 21:32] LABS: Glucose CSF 61 mg/dL (40-70); Total Protein CSF 30 mg/dL (15-45)
[2022-02-19] MEDS: acetaminophen 500 mg Tablet PO (21:49)
--- NOTE | 2022-02-19 22:41 | PC.PHAR ---
Pharmacokinetic dosing service Date: 02/19/22 Time: 2240 Objective: Patient: Sandeep Aldana Floor: ICU-9 Age: 31 yo Serum creatinine: 0.9 mg/dL Height: 73.0 Inches Weight (kg): 89.494 Diagnosis: Relevant medical/social history: Cultures and sensitivities: Other labs: Assessment: IBW (kg): 79.90 Dosing wt(kg): 89.494 Estimated Creatinine clearance (ml/min): 130 Clearance limited to 130 ml/min to reduce risk of overdosing. CRCL method: Cockcroft and Gault using ibw(default). Drug selected: Vancomycin Loading dose (mg): 0 Vd (liters): 80.5 (factor used: 0.9 L/kg) Iam (hr-1): 0.112 Half life (hrs): 6.19 Recommended dose: 1500 mg Interval: 8 hrs Infusion time (hrs): 1.5 Predicted peak (mcg/mL): 29.0 Predicted trough (mcg/mL): 14.00 Total body weight is being used for vancomycin dosing. Renal function is stable [ ] /unstable [ ] Recommendations: Give Vancomycin 1500 mg q 8 hrs with an expected Cpeak of 29.0 mcg/ml and an expected Ctrough of 14.00 mcg/ml Renal dosing of other antibiotics (review renal dosing of other medications and list guidelines here): Thank you for the consult, will continue to follow. Signature: Ruth Leary [facility]
[2022-02-19] MEDS: sodium chloride 0.9% 1,000 ML 75 ML IV (22:46)
[2022-02-19] MEDS: doxycycline 100 MG in sodium chloride 0.9% (plus) 100 ML IV (22:49)
[2022-02-19] MEDS: enoxaparin 40 mg/0.4 mL Syringe SUBCUT (22:51)
[2022-02-20] VITALS (58 sets, daily range): BP systolic 88–127; BP diastolic 43–85; PULSE 53–79; RESP 13–24; TEMP 36.7–37.8; O2SAT 93–99
[2022-02-20] MEDS: acetaminophen 500 mg Tablet PO ×3 (02:43→12:14)
[2022-02-20] MEDS: vancomycin 1,500 MG/300 ML PIGGYBACK 200 MG IV ×3 (02:43→17:15)
[2022-02-20 03:40] LABS: Basophils # 0.1 10^3/uL (0.0-0.1); Basophils % 0.5 %; Eosinophils % 0.4 %; Hematocrit 39.6 % (42.0-52.0); Hemoglobin 12.9 g/dL (11.7-16.6); Lymphocytes # 1.4 10^3/uL (0.8-4.8); Lymphocytes % 12.9 %; Mean Corpuscular HGB Conc 32.6 g/dL (30.0-36.0); Mean Corpuscular Hemoglobin 31.2 pg (28.0-34.0); Mean Corpuscular Volume 95.7 fl (80-94); Mean Platelet Volume 10.2 fL (7.4-10.4); Monocytes # 1.3 10^3/uL (0.2-0.9); Monocytes % 11.4 %; Neutrophils # 8.19 10^3/uL (1.8-7.7); Neutrophils % 74.3 %; Nucleated Red Blood Cells % 0 %; Platelet Count 175 10^3/cmm (130-400); Red Blood Count 4.14 10^6/uL (4.1-5.3); Red Cell Distribution Width 11.6 % (12.1-15.1)
[2022-02-20 04:01] LABS: Anion Gap 13.2 (5-19); Blood Urea Nitrogen 9 mg/dL (6-20); C Reactive Protein 109.5 mg/L (0.0-4.9); Calcium 8.5 mg/dL (8.5-10.5); Carbon Dioxide 27 mmol/L (22-29); Chloride 99 mmol/L (98-107); Glomerular Filtration Rate 88.3 mL/min (90-130); Glucose 109 mg/dL (65-115); Magnesium 2.1 mg/dL (1.7-2.3); Osmolality Calculated 279 mOsm/kg (285-295); Potassium 4.2 mmol/L (3.5-5.1); Sodium 135 mmol/L (136-145)
[2022-02-20 04:51] LABS: Thyroid Stimulating Hormone 0.68 uIU/mL (0.27-4.20); Vitamin B12 431 pg/mL (232-1245)
[2022-02-20 06:28] LABS: ABG PCO2 43.4 mmHg (35-45); ABG PH Result 7.39 (7.35-7.45); Arterial Blood Gas Hematocrit 39.9 % (42-52); Base Excess ABG 0.8 mmol/L (-2.0-2.0); Blood Gas Allen Test Pos; Blood Gas Sample Site Radial, right; Blood Gas Sample Type Arterial; HCO3 ABG 26.1 mmol/L (22-26); Oxygen Device ROOM AIR; PO2 ABG 75.7 mmHg (80.0-100.0)
--- NOTE | 2022-02-20 06:30 | P.PN_ITS ---
Subjective Subjective: Csf protein is not high Afebrile no Significant worsening of leukocytosis Patient this morning feeling better Much more awake and alert Vitals/I&O/Wt Last Vital Signs Temp 98.5 F 02/20/22 02:50 Pulse 71 02/20/22 06:00 Resp 16 02/20/22 06:00 BP 109/67 02/20/22 06:00 Pulse Ox 95 02/20/22 06:00 O2 Del Method 02/19/22 21:45 02/19/22 02/19/22 02/20/22 14:59 22:59 06:59 Intake Total 1000 / 1000 660 / 1660 700 / 2360 Output Total 1250 / 1250 Balance 1000 / 1000 660 / 1660 -550 / 1110 Weight last 48 hrs Weight 89.494 kg Weight 88.723 kg Physical Exam Narrative: Nonfocal neuro exam Complaining of tenderness around frontal sinuses He is able to squat He is able to stand on his heels and tiptoes Sensations intact To crude touch, fine sensation intact No sensory level Reflexes positive Hemodynamically stable Currently on room air Skin is not flushed Toxic appearance has improved Abdomen soft Awake and alert No audible stridor or wheezing Data 02/20/22 03:14 02/20/22 03:14 Micro: Microbiology 02/19/22 15:29 Gram Stain - Final Cerebrospinal Fluid 02/19/22 12:01 Blood Culture - Preliminary Blood SPECIMEN COLLECTED 02/19/22 12:01 Blood Culture - Preliminary Blood SPECIMEN COLLECTED A&P Assessment and plan (1) Meningitis: (2) Sinusitis: Plan Febrile events high inflammatory markers Concern for meningitis Patient developed viral prodromal symptoms and diarrhea before his febrile episodes and headache Sensations intact, motor strength is adequate He is able to squat today Feeling much more awake and alert Will request MRI MRV Dr. Parsons will see him today as well I have spoken to her as well Continue doxycycline, ceftriaxone and vancomycin for now Full code Regular diet He can be transferred to [facility] Drug screen B12, TSH, procalcitonin normal Attestations Medical Necessity Statement*: Continue medical management Time Spent in Patient Care: 35 Coding Level of Care Code Acute Medical Billing Associate for [facility] Fwd Diagnoses Meningitis G03.9 Sinusitis J32.9
[2022-02-20] MEDS: doxycycline 100 MG in sodium chloride 0.9% (plus) 100 ML IV ×2 (09:11→17:09)
[2022-02-20] MEDS: cefTRIAXone 2,000 MG in sodium chloride 0.9% (plus) 50 ML 100 MG IV (09:15)
--- NOTE | 2022-02-20 09:30 | MR_ITS ---
WS: [id number] MR VENOGRAPHY HEAD 3-D noncontrast imaging performed through the cerebral veins. All imaging is reviewed. HISTORY: AMS COMPARISON: None available. Absent flow-void in the RIGHT transverse sinus. Very small caliber RIGHT sigmoid sinus. No significan t abnormalities are noted on the MRI brain. 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 Dominant widely patent LEFT transverse sinus and sigmoid sinus to the jugular vein. No thrombus or acute occlusions. Straight sinus is normal. MR/[place] [id number] IMPRESSION: No acute thrombosis within the cerebral veins. Absent flow-void in the RIGHT transverse sinus is normal variation. No signal a bnormality was noted on the MRI brain performed on the day of same day.
--- NOTE | 2022-02-20 09:30 | MR_ITS ---
WS: [id number] MRI BRAIN WITHOUT CONTRAST HISTORY: AMS COMPARISON: None available. TECHNIQUE: Diffusion imaging, multiplanar T1, T2 and FLAIR imaging obtained. No evidence for acute infarct or hemorrhage. Cano-white matter differentiation is normal. No prior infarct. There are a few scattered T2 and FLAIR signal hyperintensities which are typical fo r small vessel ischemic disease. Ventricles and extra-axial spaces are normal. No inferior displacement of cerebellar tonsils. The sella turcica and pituitary gland are unremarkabl e. Dural venous sinuses and beaver of Mcmullen demonstrate no abnormality on this unenhanced studies. Paranasal sinuses: Bilateral mucoperiosteal thickening in the maxillary sinuses. No air-fluid levels. Mastoid air cells: Normal. Calvarium and scalp: Intact. MR/MR head wo con* [id number] IMPRESSION: 1. No acute infarct or hemorrhage. 2. Mild bilateral maxillary sinus disease. 3. Very minimal small vessel ischemic changes in the white matter.
[2022-02-20] MEDS: sodium chloride 0.9% 1,000 ML 75 ML IV (13:48)
--- NOTE | 2022-02-20 18:27 | PC.NURSE ---
SHift Summary: Uneventful shift. Patient was back and forth from the chair and bed throughout the day. CSF fluid sent out and currently awaiting culture results. Tested positive for MRSA. Currently awaiting Dr strange consult.
--- NOTE | 2022-02-20 19:42 | P.CONIM_ITS ---
Providers/Reason For Consult Consulting Physician/Specialty*: Aaron Ratliff MD Reason for Consult*: Headache, confusion, syncope Requesting Physician: Aaron Ratliff MD Attending Physician: Aaron Ratliff MD History of Present Illness History of Present Illness Sandeep Aldana is a 31 year old male who was admitted yesterday. Dr. Ratliff called me this morning and asked me to see the patient. He came to the emergency department yesterday complaining of chest pain, headache, fever, cough, nausea and vomiting. He had a roping event, a hobby at which he excels. He called his on the way home and said that he did not feel well and might need some help getting home. After he got home he had a severe headache. He was in the bathroom and slumped over and was drooling. His 3-year-old found him and called her mother for help. He was complaining of sharp chest pain when he woke up. He refused to go to the emergency department and went to bed. That was night before last. By yesterday his headache was worse, he was nauseated and vomiting and his temperature was 103. He was lethargic to the point that he could not stay awake. He was brought to our emergency department yesterday at noon. He had some sinus symptoms. He was seen in the emergency department by Mr. Dejesus. CT scan of the head showed somewhat low cerebellar tonsils according to the radiologist. His white blood cell count was high at 11.8. B12 431. Spinal fluid was obtained. Spinal fluid was clear and colorless with 2 white blood cells and normal glucose and protein (61/30 respectively). Influenza and COVID were negative. Although his MCV was a little high, his B12 was 431. His C-reactive protein was massively elevated at 109.5. He was admitted by Dr. Ratliff. Dr. Ratliff obtained a history that his had to do a sternal rub to wake him up to get him out of the car. He was lethargic when examined by the hospitalist. He was started on antibiotics including ceftriaxone and vancomycin as well as oral doxycycline. By the time he was seen this morning by Dr. Ratliff his neurologic exam had improved. His MRI was unremarkable today. I called the patient's earlier and I spoke with Dr. Ratliff this morning. I reviewed his MRI as soon as it was completed and talked with Dr. Castellon. The patient is feeling fine this evening. He would like to go home. He wants to go back to work tomorrow. He does not remember very much about any of the experience. He recalls that he got a headache and started feeling nauseated even before he got on his horse for the roping event. By the end he was nauseated. He has had migraines in the past with nauseating severe sick headaches with vomiting that put him to bed. He might have that once or twice a year. He has occasional scintillation. He has not had confusion associated with migraine in the past. Review of Systems Narrative: He is normally a very healthy and vigorous person. He has not had a tick bite since the summer. Const: Reports: fever(s) (103 maximum), body aches, change in appetite (He did not eat for several days), malaise and diaphoresis ENMT: Reports: throat pain, nasal discharge, nasal congestion and sinus pain Card: Reports: chest pain (This is not his first bout of chest pain. His pain was sharp and severe) and syncope Neuro: Reports: headache(s), lack of coordination, difficulty walking, confusion, behavioral changes and Slurred speech present; Denies: seizure-like activity Psych: Denies: anxiety or depression Christian/Lymph: Denies: easy bruising or easy bleeding Medications/Allergies Home Medications Medication Instructions Recorded Confirmed Last Taken Type acetaminophen 325 mg tablet 325 mg PO BID PRN Fever 02/19/22 02/19/22 02/18/22 History (Tylenol) doxylamin 12.5 mg-PSE 10 mg-DM 20 1 packet PO Q4H PRN Sinus Symptoms 02/19/22 0 02/19/22 02/18/22 History mg-acetaminophen 650 mg oral pwdr pk (Fatuma-[place] Plus Cold-Flu) Allergies Allergy/AdvReac Type Severity Reaction Status Date / Time Sulfa (Sulfonamide Allergy Unknown Verified 09/04/20 09:25 Antibiotics) Current Medications Generic Name Dose Route Start Last Admin Trade Name Freq PRN Reason Stop Dose Admin Acetaminophen 500 mg 02/19/22 21:42 02/20/22 12:14 Acetaminophen 500 Mg Tablet PO 500 mg Q4H PRN Administration fever Enoxaparin Sodium 40 mg 02/19/22 22:00 02/19/22 22:51 Enoxaparin 40 Mg/0.4 Ml Syringe SUBCUT 40 mg Q24H LYDIA Administration Doxycycline Hyclate 100 mg/ 100 mls @ 100 mls/hr 02/19/22 18:00 02/20/22 19:17 Sodium Chloride IV Infused BID LYDIA Infusion Protocol Sodium Chloride 1,000 mls @ 75 mls/hr 02/19/22 21:42 02/20/22 13:48 Sodium Chloride 0.9% IV 75 mls/hr .[id number] LYDIA Administration Vancomycin/PEG/NADA/Lysine/Water 1,500 mg in 300 mls @ 200 mls/hr 02/20/22 02:00 02/20/22 19:16 Vancocin IV Infused Q8H LYDIA Infusion Ceftriaxone Sodium 2,000 mg/ 50 mls @ 100 mls/hr 02/20/22 09:15 02/20/22 13:36 Sodium Chloride IV Infused DAILY LYDIA Infusion Protocol PFSH Acute PFSH: Medical History Fibromyositis Impacted third molar tooth No pertinent past medical history Surgical History No pertinent past surgical history No pertinent past surgical history Family History Other CAD (coronary artery disease) Hypertension Social History Smoking and tobacco status: current every day smoker smokeless tobacco Smokeless tobacco user: chewing tobacco Vitals/I&O/Wt Last Vital Signs Temp 98.1 F 02/20/22 17:30 Pulse 62 02/20/22 18:00 Resp 21 H 02/20/22 18:00 BP 98/59 02/20/22 18:00 Pulse Ox 96 02/20/22 17:30 O2 Del Method 02/20/22 13:00 02/20/22 02/20/22 02/20/22 06:59 14:59 22:59 Intake Total 700 / 2360 1650 / 1650 800 / 2450 Output Total 1250 / 1250 1500 / 1500 Balance -550 / 1110 150 / 150 800 / 950 Weight last 48 hrs Weight 197 lb 4.8 oz Weight 195 lb 9.6 oz Physical Exam Narrative: GENERAL: The patient was thin and he looks a little pale. MENTAL STATUS: Orientation was full to 10 of 10 questions of orientation. Speech was fluent without word hesitation. No difficulty following a complex command. The affect was euthymic. CRANIAL NERVES: Visual shelley were full to confrontation, direct and consensual. Extraocular movements were full without nystagmus. Both slow pursuit and saccadic eye movements were normal. PERRLA. Face was symmetric at rest and with grimace. Hearing was intact to soft spoken voice.. Tongue and palate were midline at rest and with protrusion of the tongue and elevation of the palate. Shoulders were symmetric at rest and with shoulder shrug. MOTOR: There was no drift of the extended arms. Fine movements in the hands were rapid and symmetric. Toe tapping was rapid and symmetric. Power was 5/5 in all the muscles of all four extremities tested individually. Bulk and tone were normal. There was no atrophy. No fasciculations were seen. SENSATION: Vibration was fully intact. Pin was intact and so was touch. Romberg negative. COORDINATION: No tremor. No cerebellar signs. DEEP TENDON REFLEXES: 2/4 throughout. GAIT: He was able to stand on 1 foot to put his shoes on. We walked all the way around the ICU HEENT: Normocephalic without dysmorphic features. Conjunctivae were not injected and sclerae were nonicteric. NECK: Carotid upstroke was strong bilaterally without bruits. The thyroid was not enlarged and there were no palpable lymph nodes. CHEST: Clear to auscultation. CARDIOVASCULAR: The heart sounds were normal without murmur or gallop. Regular rate and rhythm. Peripheral pulses were 2+ throughout in the distal extremities. EXTREMITIES: There was no edema or cyanosis. The skin was unremarkable. The spine exhibited normal thoracic kyphosis and normal lumbar lordosis without deformities. Data 02/20/22 03:14 02/20/22 03:14 Micro: Microbiology 02/19/22 15:29 Gram Stain - Final Cerebrospinal Fluid CSF Culture - Preliminary 02/19/22 22:01 MRSA Culture - Final Nose 02/19/22 12:01 Blood Culture - Preliminary Blood NEGATIVE TO DATE 02/19/22 12:01 Blood Culture - Preliminary Blood NEGATIVE TO DATE A&P Assessment and plan (1) Sinusitis: Healthy 31-year-old man, vigorous athlete who developed subacute onset of a headache high fever, confusion with lethargy, extremely high CRP with normal spinal fluid, unremarkable MRI brain and MR venogram except for ethmoid and sphenoid sinusitis. That was not noted by neurologist but is seen on exam. Sphenoid sinusitis may cause headache and could be partially responsible for his symptoms but it is common to have a small amount of inflammation in the sphenoid sinuses without causing confusion or profound headache like the patient experienced. I think the best explanation in view of all of the information present is that he had some type of a viral syndrome with high fever and it triggered a confusional migraine. Confusional migraine is unusual and most commonly occurs in young children or teenagers but can occur at any age. I think it safe to send him home on a couple of weeks of Augmentin for his sinusitis and doxycycline in case he has tickborne illness (though with his normal CBC and liver function that is unlikely). Sending it tick panel and further inflammatory information such as GUANAKITO and RA prior to discharge and then I can check that as an outpatient should allow him to be discharged tonight. I talked with Dr. Cabrales. The patient strongly desires to go to work tomorrow and I asked him not to do that. (2) Toxic metabolic encephalopathy: (3) Chronic migraine without aura, intractable, with status migrainosus: (4) Viral syndrome: Consult Attestations Medical Necessity Statement: Patient presented with severe lethargy and c onfusion and high fever requiring ICU care. He was a strong consideration for meningitis which is now been ruled out by his spinal fluid findings. Coding Level of Care Code Acute Code for [facility] Diagnoses Sinusitis J32.9 Toxic metabolic encephalopathy G92.8 Chronic migraine without aura, intractable, with status migrainosus G43.711 Viral syndrome B34.9
[2022-02-20] MEDS: ketorolac 30 mg/mL INJ IM (21:56)
[2022-02-21] VITALS (21 sets, daily range): BP systolic 97–116; BP diastolic 66–75; PULSE 51–75; RESP 12–23; TEMP 36.3–36.7; O2SAT 95–99
[2022-02-21] MEDS: sodium chloride 0.9% 1,000 ML 75 ML IV (00:51)
[2022-02-21 01:28] LABS: Basophils # 0.1 10^3/uL (0.0-0.1); Basophils % 0.7 %; Eosinophils # 0.2 10^3/uL (0.0-0.8); Eosinophils % 2.9 %; Hematocrit 38.2 % (42.0-52.0); Hemoglobin 12.3 g/dL (11.7-16.6); Lymphocytes # 1.7 10^3/uL (0.8-4.8); Lymphocytes % 24.8 %; Mean Corpuscular HGB Conc 32.2 g/dL (30.0-36.0); Mean Corpuscular Hemoglobin 30.8 pg (28.0-34.0); Mean Corpuscular Volume 95.7 fl (80-94); Mean Platelet Volume 10.3 fL (7.4-10.4); Monocytes % 14.1 %; Neutrophils # 4.01 10^3/uL (1.8-7.7); Neutrophils % 57.2 %; Nucleated Red Blood Cells % 0 %; Platelet Count 166 10^3/cmm (130-400); Red Blood Count 3.99 10^6/uL (4.1-5.3); Red Cell Distribution Width 11.6 % (12.1-15.1)
[2022-02-21] MEDS: vancomycin 1,500 MG/300 ML PIGGYBACK 200 MG IV (01:48)
[2022-02-21 02:01] LABS: Vancomycin Trough 11.6 ug/mL (10-15)
[2022-02-21 02:04] LABS: Anion Gap 10.6 (5-19); Blood Urea Nitrogen 7 mg/dL (6-20); Calcium 8.4 mg/dL (8.5-10.5); Carbon Dioxide 24 mmol/L (22-29); Chloride 108 mmol/L (98-107); Glomerular Filtration Rate 133.3 mL/min (90-130); Glucose 112 mg/dL (65-115); Osmolality Calculated 287 mOsm/kg (285-295); Potassium 3.6 mmol/L (3.5-5.1); Sodium 139 mmol/L (136-145)
[2022-02-21 02:11] LABS: Procalcitonin 0.09 ng/mL (0-0.5)
[2022-02-21 03:41] LABS: Erythrocyte Sedimentation Rate 17 mm/hr (0-10)
--- NOTE | 2022-02-21 07:05 | P.DS_ITS ---
Discharge Providers Date of Admission: 02/19/22 21:41 Date of Discharge: February 21, 2022 Attending Provider at Admission: Aaron Ratliff MD Attending Provider at Discharge: Aaron Ratliff MD Diagnoses at Discharge Discharge Diagnosis (1) Sinusitis: Status: Acute (2) Toxic metabolic encephalopathy: Status: Acute (3) Chronic migraine without aura, intractable, with status migrainosus: Status: Acute (4) Viral syndrome: Status: Acute Reason for Visit Reason for Visit: chest pain Brief History: Sandeep Aldana is a 31 year old male does not have significant past medical surgical history presented to the hospital with chief complaint of worsening of fatigue, confusion, fever. Patient is stating that he is not sure what happened most of the history has been taken from his . He came from horse riding event & started? experiencing fatigue and lethargy.? He told his family that he is not feeling right but did not want to go to the ER for the evaluation. last night after horse riding event he started experiencing headache along fatigue, at home in the bathroom his 3-year-old daughter old found him hunched over the toilet seat.? When checked on him she did not notice strokelike features however saliva was drooling and he was lethargic, it was hard for him to stay awake. Then later in the night he experienced chest pain as well which he is describing as sharp pain, lasted 3 mins without diaphoresis or nausea. 5 yrs ago he was evaluated for chest pain and had a stress test done as well? he is not sure about the results. 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 Finally agreed to come to the ER for further evaluation.? As per the they had to sternal rub him in order to wake him up, they did not take temperature however his body was pretty warm and she could tell that he was febrile. Patient is stating that before this whole sudden event he has been suffering with sinus congestion, runny nose, flulike symptoms and experienced a few episodes of diarrhea as well.. In the ER CSF panel was requested for possible meningitis, he was started on ceftriaxone and vancomycin, he is febrile with leukocytosis however there is no endorgan damage no signs of sepsis Drug screen, UA unremarkable He was admitted to the ICU Hospital Course Hospital Course Patient was admitted to the ICU for metabolic encephalopathy, he was treated empirically for possible meningitis with vancomycin and ceftriaxone and doxyc ycline. Patient symptoms improved within 12 hours, next day he there was significant improvement in his energy, neurological status and mental status. MRI head MRV unremarkable. It is showing sinusitis. CSF panel unremarkable, patient remained febrile for about 8 to 12 hours and then remained afebrile, he was evaluated by Dr. Parsons as well. Decision was made to discharge him home on doxycycline and Augmentin for sinusitis and possible atypical infection such as tick bite. Patient is very active for his age, he thinks he is ready to go back to his work. He does not have any PCP, will give him a new PCP appointment. Dr. Parsons thinks it is related to complex migraine/sinusitis Physical Exam Narrative: Awake and alert Nonfocal neuro exam In nature S1, S2 Hemodynamically stable Doing well on room air Discharge Data Studies Completed and Pending Completed Studies During Hospitalization Category Date Time Status CT head wo con* [id number] Stat Cat Scan 02/19/22 11:44 Completed XR chest 1V portable [id number] Stat Exams 02/19/22 11:28 Completed MR head wo con* [id number] Routine MRI 02/20/22 09:30 [place] [id number] Routine MRI 02/20/22 09:30 Completed Pending at discharge Category Date Time Status GUANAKITO Profile Rheumatology Routine Lab 02/20/22 21:17 Received Blood Culture Stat Lab 02/19/22 12:01 Results CSF Culture & Gram Stain Stat Lab 02/19/22 15:29 Results Lymes Disease Antibodies CSF Routine Lab 02/19/22 15:29 Received Myelin Oligodendrocyte AB CSF Routine Lab 02/19/22 15:29 Received Sputum Culture and Gram Stain Stat Lab 02/19/22 17:51 Uncollected [facility].Virus IFA CSF Routine Lab 02/19/22 15:29 Received Tick Panel Routine Lab 02/20/22 21:17 Received VDRL on CSF Routine Lab 02/19/22 15:29 Received Radiology Impressions Chest X-Ray 02/19/22 11:28 IMPRESSION: No acute findings. Head CT 02/19/22 11:44 IMPRESSION: 1. No evidence of intracranial hemorrhage or mass effect. 2. Normal galeas-white differentiation. 3. Incidental slightly low-lying cerebellar tonsils. No hydrocephalus 4. Partially visualized mild sinusitis Notified TAI Woodruff at 02/19/2022 1:08 PM. Head MRI 02/20/22 09:30 IMPRESSION: 1. No acute infarct or hemorrhage. 2. Mild bilateral maxillary sinus disease. 3. Very minimal small vessel ischemic changes in the white matter. Head/Brain Mag Res Venography 02/20/22 09:30 IMPRESSION: No acute thrombosis within the cerebral veins. Absent flow-void in the RIGHT transverse sinus is normal variation. No signal abnormality was noted on the MRI brain performed on the day of same day. Laboratory Results WBC 7.0 10^3/uL (4.0-10.0) 02/21/22 01:08 RBC 3.99 10^6/uL (4.1-5.3) L 02/21/22 01:08 Hgb 12.3 g/dL (11.7-16.6) 02/21/22 01:08 Hct 38.2 % (42.0-52.0) L 02/21/22 01:08 MCV 95.7 fl (80-94) H 02/21/22 01:08 MCH 30.8 pg (28.0-34.0) 02/21/22 01:08 MCHC 32.2 g/dL (30.0-36.0) 02/21/22 01:08 RDW 11.6 % (12.1-15.1) L 02/21/22 01:08 Plt Count 166 10^3/cmm (130-400) 02/21/22 01:08 MPV 10.3 fL (7.4-10.4) 02/21/22 01:08 Neut % (Auto) 57.2 % 02/21/22 01:08 Lymph % (Auto) 24.8 % 02/21/22 01:08 [place] % (Auto) 14.1 % 02/21/22 01:08 Eos % (Auto) 2.9 % 02/21/22 01:08 Baso % (Auto) 0.7 % 02/21/22 01:08 Neut # (Auto) 4.01 10^3/uL (1.8-7.7) 02/21/22 01:08 Lymph # (Auto) 1.7 10^3/uL (0.8-4.8) 02/21/22 01:08 [place] # (Auto) 1.0 10^3/uL (0.2-0.9) H 02/21/22 01:08 Eos # (Auto) 0.2 10^3/uL (0.0-0.8) 02/21/22 01:08 Baso # (Auto) 0.1 10^3/uL (0.0-0.1) 02/21/22 01:08 Nucleated RBC % (auto) 0 % 02/21/22 01:08 Nucleated RBCs # 0.0 /100WBC 02/21/22 01:08 ESR 17 mm/hr (0-10) H 02/21/22 01:08 D-Dimer 0.29 ug/mIFEU (0-0.59) 02/19/22 12:01 Specimen Type Arterial 02/20/22 04:00 Sample Site Radial, right 02/20/22 04:00 ABG pH 7.39 (7.35-7.45) 02/20/22 04:00 ABG pCO2 43.4 mmHg (35-45) 02/20/22 04:00 ABG pO2 75.7 mmHg (80.0-100.0) L 02/20/22 04:00 ABG HCO3 26.1 mmol/L (22-26) H 02/20/22 04:00 ABG Base Excess 0.8 mmol/L (-2.0-2.0) 02/20/22 04:00 Ruel Test Pos 02/20/22 04:00 Hematocrit 39.9 % (42-52) L 02/20/22 04:00 O2 Delivery Device Room air 02/20/22 04:00 Expeller Operator ID [email or web address] 02/20/22 04:00 Sodium 139 mmol/L (136-145) 02/21/22 01:08 Potassium 3.6 mmol/L (3.5-5.1) 02/21/22 01:08 Chloride 108 mmol/L (98-107) H 02/21/22 01:08 Carbon Dioxide 24 mmol/L (22-29) 02/21/22 01:08 Anion Gap 10.6 (5-19) 02/21/22 01:08 BUN 7 mg/dL (6-20) 02/21/22 01:08 Creatinine 0.7 mg/dL (0.7-1.2) 02/21/22 01:08 GFR Calculation 133.3 mL/min (90-130) H 02/21/22 01:08 Glucose 112 mg/dL (65-115) 02/21/22 01:08 Calculated Osmolality 287 mOsm/kg (285-295) 02/21/22 01:08 Lactic Acid 0.9 mmol/L (0.5-2.2) 02/19/22 12:01 Calcium 8.4 mg/dL (8.5-10.5) L 02/21/22 01:08 Magnesium 2.1 mg/dL (1.7-2.3) 02/20/22 03:14 Total Bilirubin 0.9 mg/dL (0.15-1.2) 02/19/22 12:01 AST 14 U/L (0-40) 02/19/22 12:01 ALT 12 U/L (0-41) 02/19/22 12:01 Alkaline Phosphatase 55 U/L (40-130) 02/19/22 12:01 Troponin T Baseline 6 ng/L (0-15) 02/19/22 12:01 Troponin T 120 Minute 6.41 ng/L (0-15) 02/19/22 14:18 Delta Troponin T 0.41 ABS# (0-10) 02/19/22 14:18 Troponin T Hi Sens 6Hr 6.00 ng/L (0-15) 02/19/22 17:42 Troponin T Hi Sens 6Hr Delta 0 ng/L (0-12) 02/19/22 17:42 C-Reactive Protein 109.5 mg/L (0.0-4.9) H 02/20/22 03:14 Total Protein 7.5 g/dL (6.6-8.7) 02/19/22 12:01 Albumin 4.4 g/dL (3.5-5.2) 02/19/22 12:01 Globulin 3.1 g/dL (1.3-4.6) 02/19/22 12:01 Vitamin B12 431 pg/mL (232-1245) 02/19/22 21:08 Procalcitonin 0.09 ng/mL (0-0.5) 02/21/22 01:08 TSH 0.68 uIU/mL (0.27-4.20) 02/19/22 21:08 Urine Color Yellow (Yellow) 02/19/22 19:34 Urine Appearance Clear (CLEAR) 02/19/22 19:34 Urine pH 6 (5-7) 02/19/22 19:34 Ur Specific [place] 1.020 (1.005-1.030) 02/19/22 19:34 Urine Protein Neg (Negative) 02/19/22 19:34 Urine Glucose (UA) Norm (Normal) 02/19/22 19:34 Urine Ketones Negative (Negative) 02/19/22 19:34 Urine Blood Neg (Negative) 02/19/22 19:34 Urine Nitrate Negative (Negative) 02/19/22 19:34 Urine Bilirubin Neg (Negative) 02/19/22 19:34 Urine Urobilinogen 4 mg/dL (Negative) H 02/19/22 19:34 Ur Leukocyte Esterase Negative (Negative) 02/19/22 19:34 CSF Appearance Clear (CLEAR) 02/19/22 15:29 CSF Color Colorless (COLORLESS) 02/19/22 15:29 CSF Specific [place] 1.015 02/19/22 15:29 CSF WBC 2 /uL (0-5) 02/19/22 15:29 CSF RBC 0 10^3/uL (0-0) 02/19/22 15:29 CSF Mononuclear # Auto 0.002 10^3/uL (50-90) L 02/19/22 15:29 CSF Mononuclear WBCs % 100 % (50-90) H 02/19/22 15:29 CSF Polynuclear WBCs # 0.000 10^3/uL (0-10) 02/19/22 15:29 CSF Polynuclear WBCs % 0 % (0-10) 02/19/22 15:29 CSF Glucose 61 mg/dL (40-70) 02/19/22 15:29 CSF Total Protein 30 mg/dL (15-45) 02/19/22 15:29 Vancomycin Trough 11.6 ug/mL (10-15) 02/21/22 01:08 Urine Opiates Screen Positive ng/mL (Negative) H 02/19/22 19:34 Ur Barbiturates Screen Negative ng/mL (Negative) 02/19/22 19:34 Ur Phencyclidine Scrn Negative ng/mL (Negative) 02/19/22 19:34 Ur Amphetamines Screen Negative ng/mL (Negative) 02/19/22 19:34 U Benzodiazepines Scrn Negative ng/mL (Negative) 02/19/22 19:34 Urine Cocaine Screen Negative ng/mL (Negative) 02/19/22 19:34 U Marijuana (THC) Screen Negative ng/mL (Negative) 02/19/22 19:34 Rheumatoid Factor 12.0 IU/mL (0-14) 02/20/22 21:17 Influenza Type A Ag negative (Negative) 02/19/22 11:45 Influenza Type B Ag negative (Negative) 02/19/22 11:45 SARS-CoV-2 Ag (Rapid) negative (Negative) 02/19/22 11:45 Misc Test Reference Cancelled 02/21/22 01:08 Vitals Last Vital Signs Temp 98.1 F 02/21/22 03:00 Pulse 60 02/21/22 06:25 Resp 23 H 02/21/22 06:25 BP 102/70 02/21/22 06:25 Pulse Ox 98 02/21/22 06:25 O2 Del Method 02/20/22 13:00 Discharge Plan Discharge Patient Disposition: Home Condition: Stable Prescriptions: New amoxicillin-pot clavulanate 875-125 mg tablet 1 tab PO BID Qty: 14 0RF doxycycline hyclate 100 mg tablet 100 mg PO BID 5 Days Qty: 10 0RF Continued Tylenol 325 mg Tablet 325 mg PO BID PRN (Reason: Fever) Discontinued Fatuma-[place] Plus Cold-Flu 12.5-10-20-650 mg Powder In Packet 1 packet PO Q4H PRN (Reason: Sinus Symptoms) Rx Instructions: DNExceed 5 doses/24h Discharge Orders: Discharge Order (Routine); Ordered 02/21/22 Ordered By: Aaron Ratliff Referrals: Jasmin Parsons MD [Physician] - 2 weeks (Patients will schedule this appointment.) Francisco Anthony MD [Physician] - 7-10 days Discharge Diet: Advance as tolerated Discharge Activity: Increase activity as tolerated Patient Instructions: Doxycycline (By mouth), Amoxicillin/Clavulanate Potassium (By mouth) (Augmentin, Augmentin..., Headache - Migraine (Adult), Sinusitis (GEN), Opioid Safety Discharge Attestations Time Spent in Discharge Care*: less than 30 min Quality Metrics Clinical Quality Measures [ No reported AMI, CVA or VTE this stay] Coding Level of Care Code Acute Chg FW DC note Diagnoses Sinusitis J32.9 Toxic metabolic encephalopathy G92.8 Chronic migraine without aura, intractable, with status migrainosus G43.711 Viral syndrome B34.9
--- NOTE | 2022-02-21 09:18 | PC.NURSE ---
Discharged patient. ALert and oriented. Meds sent to [facility] pharmacy. DIscharge instructions discussed with patient. No appointment made with DR strange. Offices are closed at this time and patient doesnt want to wait until ofices open. THey will make the appointment themselves. Nurse provided patient with Dr alvares phone number and adress.
[2022-02-24 10:15] LABS: CENTROMERE B ANTIBODY <1.0 NEG AI (<1.0 NEG); JO-1 ANTIBODY <1.0 NEG AI (<1.0 NEG); RNP ANTIBODY <1.0 NEG AI (<1.0 NEG); SCL-70 ANTIBODY <1.0 NEG AI (<1.0 NEG); SJOGREN'S ANTIBODY (SS-A) <1.0 NEG AI (<1.0 NEG); SM ANTIBODY <1.0 NEG AI (<1.0 NEG); SS-B <1.0 NEG AI (<1.0 NEG)
[2022-02-24 11:59] LABS: COMPLEMENT COMPONENT C3C 136 mg/dL (82-185); COMPLEMENT COMPONENT C4C 22 mg/dL (15-53)
[2022-02-24 13:40] LABS: COMPLEMENT, TOTAL (CH50) >60 U/mL (31-60)
[2022-02-24 13:49] LABS: ANA SCREEN, IFA NEGATIVE (NEGATIVE)
[2022-02-24 14:49] LABS: Lyme AB Screen <0.90 index
[2022-02-24 19:40] LABS: THYROID PEROXIDASE ANTIBODIES <1 IU/mL (<9)
[2022-02-25 10:30] LABS: Myelin Oligodendrocyte CBA CSF NEGATIVE (NEGATIVE)
[2022-02-25 15:09] LABS: DNA AB (DS) CRITHIDIA,IFA NEGATIVE (NEGATIVE)
[2022-02-26 16:49] LABS: E. Chaffeensis AB IGG <1:64; E. Chaffeensis AB IGM <1:20
[2022-02-26 20:09] LABS: Lyme Disease AB (IGG),IBL NO BANDS DETECTED; Lyme Disease AB (IGM), IBL NO BANDS DETECTED
[2022-02-26 21:49] LABS: RMSF IGG NOT DETECTED; RMSF IGM NOT DETECTED
[2022-02-27 17:15] LABS: St. Louis Enceph.Virus IGG CSF <1:1; St. Louis Enceph.Virus IGM CSF <1:1
[2022-02-27 22:09] LABS: VDRL on CSF NON-REACTIVE
== END 2022-02-21 07:50 | disposition home or self-care (01) | DRG 102 ==
LOC: ER 18:36 → MEDSURG 19:01 → ICU 21:55 → MEDSURG 02-20 06:28
PROVIDERS: Physician Assistant; Specialist; Admitting Provider Internal Medicine; Emergency Provider Family Medicine; Visit Provider Internal Medicine
DX: G43.711 Chronic migraine without aura, intractable, with status migrainosus (principal); G92.8 Other toxic encephalopathy; J32.9 Chronic sinusitis, unspecified; F17.220 Nicotine dependence, chewing tobacco, uncomplicated
CPT/HCPCS: 36415; 36600; 70450; 70544; 70551; 71045; 80048; 80053; 80202; 80306; 80503; 81003; 82607; 82803; 82945; 83605; 83735; 84145; 84157; 84315; 84443; 84484; 85025; 85378; 85651; 86140; 86160; 86162; 86235; 86255; 86376; 86431; 86592; 86617; 86618; 86653; 86666; 86757; 87040; 87070; 87075; 87205; 87426; 87641; 87804; 89050; 93005; 96372; 96374; 96375; 99285; J0696; J1650; J1885; J2270; J2405; J3370; J3490; J7030; J7050

== ENCOUNTER 2022-03-06 11:51 | Outpatient (CLI) | payer OTHER, SELFPAY | END 2022-03-06 11:52 | disposition home or self-care (01) | PROVIDERS: Visit Provider Specialist | DX: R20.0 Anesthesia of skin (principal); R20.2 Paresthesia of skin | CPT/HCPCS: 36415; 86140 ==

== ENCOUNTER 2022-04-24 10:43 | Outpatient (CLI) | payer OTHER, SELFPAY ==
--- NOTE | 2022-04-24 | ECG_ITS ---
[facility] Test Date: 2022-04-24 Pat Name: Sandeep Aldana Department: Room: Gender: Male Line Installer: Angie Alex : 1990 Requested By: Jasmin Parsons Order Number: [id number] Miley MD: Stacia Forrest M.D. Interpretive Statements NAME OF STUDY: TREADMILL STRESS TEST INDICATION: Chest Pain, PROCEDURE: At the baseline, the patient's blood pressure was with a heart rate of. The baseline electrocardiogram showed normal sinus rhythm with normal ST-Ts. Incomplete right bundle branch block pattern. The patient exercised for 10 minutes and 10 seconds on a standard Alexys protocol. Patient attained a maximum heart rate of 170 beats per minute(89% of the maximum predicted heart rate) with a blood pressure at the peak exercise of 90 mm Hg. The EKG at the peak exercise revealed. Patient did not have any chest pain or any significant cardiac arrhythmias with the exercise During the recovery phase, there were no new changes. Blood pressure at the end of the recovery phase was 106/74 mm Hg with a heart rate of 96 per minute. CONCLUSION: 1. Normal EKG response to treadmill exercise 2. No exercise-induced chest pain or cardiac arrhythmia 3. Fair exercise tolerance, attained a maximum of 13.5 METs Electronically Signed On 04-25-2022 15:33:56 CDT by Stacia Forrest M.D. [email or web address]
[2022-04-24 12:30] VITALS: BP 106/74; PULSE 95; BMI 25.0
== END 2022-04-24 10:44 | disposition home or self-care (01) ==
PROVIDERS: Visit Provider Specialist
DX: R07.9 Chest pain, unspecified (principal)
CPT/HCPCS: 93017

== ENCOUNTER → 2022-06-10 15:05 | Outpatient (BNVA) | payer OTHER, SELFPAY | PROVIDERS: Visit Provider Internal Medicine | DX: R00.2 Palpitations (principal); R07.9 Chest pain, unspecified | CPT/HCPCS: 93005 ==

== ENCOUNTER 2022-08-06 05:58 | Outpatient (CLI) | payer OTHER, SELFPAY ==
--- NOTE | 2022-08-06 06:30 | USCV_ITS ---
Sandeep Aldana Age: 32 Gender: M : 1990 Exam Date: 08/06/2022 06:10 Ordering Phys: Maximino Nunez M.D ([email or web address]) Technologist: ISELA [place]am [place] [facility] [place]ication: CHEST PAIN BP: 132 / 60 HR: 63 Rhythm: Sinus Technical Quality: Adequate MEASUREMENTS (Male / Female) Normal Values 2D ECHO LVOT Diameter 2.0 cm LV Ejection Fraction MOD 2C 64.9 % LV Ejection Fraction 2C AL 66.3 % LA Diameter 3.1 cm LA Width 3.5 cm LA Height 3.9 cm RA Width 3.1 cm RA Height 4.2 cm Aorta at Sinotubular Diameter 2.0 cm IVC Diameter 1.4 cm M-MODE Aortic Annulus Diameter 2.9 cm LA Ao Ratio MM 1.1 MV E Point Septal Separation 0.2 cm DOPPLER AV Peak Velocity 139.0 cm/s LVOT Peak Velocity 132.0 cm/s AV Area Cont Eq vti 3.2 cm squared AV Area Cont Eq pk 2.9 cm squared MV Peak Velocity 104.0 cm/s MV Area PHT 4.2 cm squared Mitral E to A Ratio 1.7 MV E' Velocity 63.0 cm/s Mitral E to MV E' Ratio 7.5 Mitral E to LV E' Lateral Ratio 7.3 Mitral E to LV E' Septal Ratio 7.7 TR Peak Velocity 193.1 cm/s TR Peak Gradient 14.9 mmHg TR Mean Velocity 151.9 cm/s TR Mean Gradient 9.8 mmHg TR Velocity Time Integral 53.2 cm TV Peak E Velocity 57.0 cm/s Right Atrial Pressure 3.0 mmHg Pulmonary Artery Systolic Pressu 17.9 mmHg PV Peak Velocity 129.0 cm/s RV Acceleration Time 0.1 s RV Ejection Time 0.3 s RV AcT/ET 0.5 FINDINGS Left Ventricle Left ventricle is normal in size. LV systolic function is normal with EF of 55 to 60%. No regional wall motion abnormalities are seen. Right Ventricle Normal in size and function Right Atrium Normal in size Left Atrium Normal in size Mitral Valve Normal mitral valve. Mild mitral regurgitation. Aortic Valve Structurally normal aortic valve. No significant stenosis or regurgitation. Tricuspid Valve Mild tricuspid regurgitation. Insufficient TR jet to calculate RVSP Pulmonic Valve Not well visualized Pericardium Normal Aorta Normal in size IVC Appears to be normal CONCLUSIONS LV systolic function is normal with EF of 55 to 60%. Mild mitral regurgitation Mild tricuspid regurgitation No comparison studies are available Maximino Nunez MD (Electronically Signed) Final Date: 10 August 2022 14:36 S
== END 2022-08-06 05:59 | disposition home or self-care (01) ==
PROVIDERS: Visit Provider Internal Medicine
DX: R07.9 Chest pain, unspecified (principal)
CPT/HCPCS: 93306

== ENCOUNTER 2022-11-08 21:53 | Emergency (ER) | payer OTHER, SELFPAY ==
[2022-11-08 22:00] VITALS: BP 127/80; PULSE 68; RESP 18; TEMP 36.6; O2SAT 98; BMI 26.4
--- NOTE | 2022-11-08 22:08 | ECG_ITS ---
[facility] Test Date: 2022-11-08 Pat Name: Sandeep Aldana Department: Room: Gender: Male [employer] Department Chair: : 1990 Requested By: Gabriel Vera Order Number: [id number] Trent MD: Maximino Nunez M.D. Measurements Intervals [place] Rate: 65 P: 30 MO: 170 QRS: 87 QRSD: 98 T: 31 QT: 376 QTc: 392 Interpretive Statements SINUS RHYTHM POSSIBLE RIGHT VENTRICULAR CONDUCTION DELAY [RSR (QR) IN V1/V2] Compared to ECG 06/10/2022 15:16:45 No significant changes Electronically Signed On 11-09-2022 11:10:00 CDT by Maximino Nunez M.D. [email or web address]
--- NOTE | 2022-11-08 22:08 | XRR_ITS ---
PROCEDURE INFORMATION: Exam: XR Chest Exam date and time: 11/08/2022 10:12 PM Age: 32 years old Clinical indication: Chest pressure; Patient HX: Chest pain TECHNIQUE: Imaging protocol: Radiologic exam of the chest. Views: 1 view. COMPARISON: CR XR chest 1V portable [id number] 02/19/2022 11:42 AM FINDINGS: Lungs: Unremarkable. No consolidation. Pleural spaces: Unremarkable. No pleural effusion. No pneumothorax. Heart/Mediastinum: Unremarkable. No cardiomegaly. Bones/joints: Unremarkable. XR/XR chest 1V portable [id number] IMPRESSION: No acute findings.
[2022-11-08 22:27] LABS: Basophils # 0.1 10^3/uL (0.0-0.1); Basophils % 1.3 %; Eosinophils # 0.2 10^3/uL (0.0-0.8); Eosinophils % 3.8 %; Hematocrit 40.1 % (37-53); Lymphocytes % 31.6 %; Mean Corpuscular HGB Conc 34.7 g/dL (30-55); Mean Corpuscular Hemoglobin 31.5 pg (27-33); Mean Corpuscular Volume 90.9 fl (82-101); Mean Platelet Volume 9.9 fL (7.4-10.4); Monocytes # 0.7 10^3/uL (0.2-0.9); Monocytes % 11.7 %; Neutrophils # 3.21 10^3/uL (1.8-7.7); Neutrophils % 51.4 %; Nucleated Red Blood Cells % 0 %; Platelet Count 240 10^3/cmm (157-399); Red Blood Count 4.41 10^6/uL (3.85-5.65); Red Cell Distribution Width 11.5 % (12.1-15.1); White Blood Count 6.24 10^3/uL (3.29-11.43)
[2022-11-08 22:35] VITALS: BP 125/82; PULSE 91; RESP 20; O2SAT 98
[2022-11-08 22:41] LABS: Troponin(5th) Baseline < 6 ng/L (0-15)
--- NOTE | 2022-11-08 22:57 | ED_ITS ---
HPI - Chest Pain General: Chief Complaint: Chest Pain Stated Complaint: cp Time Seen by Provider: 11/08/22 22:00 Source: patient History of Present Illness: Healthy 32-year-old male. He presents with left-sided chest discomfort. He has had this pain on and off for a while. He has had a stress test and echocardiogram as an outpatient in the recent past. He notes the pain started this evening while he was leaning up against a truck. Pain at times is worsened by deep breath, although not always. Pain makes him feel like it is hard to catch a deep breath, although he does not admit to shortness of breath. No fever, no cough, no other recent illnesses. He did briefly complain of some shooting pain to his right calf prior although this is improved. No history of long trips, etc. MD complaint: chest pain Associated symptoms: Reports dyspnea; Deny abdominal pain, fever(s), nausea, palpitations or vomiting Risk Factors: Coronary artery disease risk factors: family history of CAD before age 50 Review of Systems Const: Denies: fever(s), chills or body aches Eyes: Denies: change in vision ENMT: Denies: throat pain Card: Reports: chest pain; Denies: palpitations Resp: Reports: dyspnea; Denies: productive cough, non-productive cough or wheezing GI: Denies: abdominal pain, nausea, vomiting, diarrhea or hematochezia Skin/Breast: Denies: rash Neuro: Denies: headache(s), weakness in extremities, dizziness or confusion PFS ED PFSH: Medical History Chronic migraine without aura, intractable, with status migrainosus Fibromyositis Impacted third molar tooth Meningitis No pertinent past medical history Sinusitis Toxic metabolic encephalopathy Viral syndrome Surgical History No pertinent past surgical history No pertinent past surgical history Family History Other CAD (coronary artery disease) Hypertension Social History Smoking and tobacco status: current every day smoker smokeless tobacco Smokeless tobacco user: chewing tobacco Physical Exam Const: COMMON NORMALS: no acute distress GENERAL APPEARANCE: cooperative; not ill appearing and not frail appearing HENMT: COMMON NORMALS: normocephalic, atraumatic and Normal external nose present HEAD & SCALP: normocephalic and atraumatic FACE & SINUS: normal facial exam and face symmetric NOSE: Normal external nose present Eye: COMMON NORMALS: Equal, round and reactive pupils present and EOMs intact bilaterally PUPIL: Yes Equal, round and reactive pupils present Neck/C-Spine: GENERAL: Yes trachea midline Chest: CHEST: Yes Symmetrical chest wall rise and Yes tenderness (Mild left anterior) Resp: COMMON NORMALS: normal respiratory effort, No retractions, No use of accessory muscles and clear to auscultation bilaterally AUSCULTATION: clear to auscultation bilaterally Cardio: COMMON NORMALS: regular rate and regular rhythm RATE: regular rate RHYTHM: regular rhythm GI: COMMON NORMALS: Normal to inspection, nondistended, normoactive bowel sounds present PALPATION: Yes Tenderness to palpation present (GI) (Mild epigastric) Extremity: COMMON NORMALS: no pedal edema Neuro: ELVIRA COMA SCALE: document GCS findings Elvira coma scale eye opening: Spontaneous Elvira coma scale verbal response: Orientated Elvira coma scale motor response: Obey commands Elvira coma scale total score: 15 SENSORY EXAM: Yes extremities (intact) Psych: COMMON NORMALS: speech normal SPEECH: Yes normal speech Skin: COMMON NORMALS: no rashes or lesions noted GENERAL SKIN EXAM: no rashes or lesions noted Course Vital Signs: Vital signs: Vital Signs Temperature 97.8 F 11/08/22 22:00 Pulse Rate 66 11/08/22 22:59 Respiratory Rate 18 11/08/22 22:59 Blood Pressure 125/82 11/08/22 22:59 Pulse Oximetry 98 11/08/22 22:59 Oxygen Delivery Me thod Room Air 11/08/22 22:35 MDM - Chest Pain Medical Decision Making 32-year-old male with chest discomfort. Incompletely reproducible. Chest x-ray is negative. CBC and BMP are negative. Troponin is less than 6. D-dimer is less than 0.27. BNP is 36. Liver enzymes are normal. He declined medication here. He will be allowed discharge to outpatient follow-up. He has seen cardiology in the past as above. Lab Data 11/08/22 22:16 11/08/22 11:56 Radiology Impressions Chest X-Ray 11/08/22 22:08 IMPRESSION: No acute findings. Laboratory Results WBC 6.24 10^3/uL (3.29-11.43) 11/08/22 22:16 RBC 4.41 10^6/uL (3.85-5.65) 11/08/22 22:16 Hgb 13.90 g/dL (11.27-16.99) 11/08/22 22:16 Hct 40.1 % (37-53) 11/08/22 22:16 MCV 90.9 fl (82-101) 11/08/22 22:16 MCH 31.5 pg (27-33) 11/08/22 22:16 MCHC 34.7 g/dL (30-55) 11/08/22 22:16 RDW 11.5 % (12.1-15.1) L 11/08/22 22:16 Plt Count 240 10^3/cmm (157-399) 11/08/22 22:16 MPV 9.9 fL (7.4-10.4) 11/08/22 22:16 Neut % (Auto) 51.4 % 11/08/22 22:16 Lymph % (Auto) 31.6 % 11/08/22 22:16 Gaston % (Auto) 11.7 % 11/08/22 22:16 Eos % (Auto) 3.8 % 11/08/22 22:16 Baso % (Auto) 1.3 % 11/08/22 22:16 Neut # (Auto) 3.21 10^3/uL (1.8-7.7) 11/08/22 22:16 Lymph # (Auto) 2.0 10^3/uL (0.8-4.8) 11/08/22 22:16 Gaston # (Auto) 0.7 10^3/uL (0.2-0.9) 11/08/22 22:16 Eos # (Auto) 0.2 10^3/uL (0.0-0.8) 11/08/22 22:16 Baso # (Auto) 0.1 10^3/uL (0.0-0.1) 11/08/22 22:16 Nucleated RBC % (auto) 0 % 11/08/22 22:16 Nucleated RBCs # 0.0 /100WBC 11/08/22 22:16 D-Dimer <= 0.27 ug/mLFEU (0-0.59) 11/08/22 22:10 Sodium 137 mmol/L (136-145) 11/08/22 11:56 Potassium 4.2 mmol/L (3.5-5.1) 11/08/22 11:56 Chloride 103 mmol/L (98-107) 11/08/22 11:56 Carbon Dioxide 25 mmol/L (22-29) 11/08/22 11:56 Anion Gap 13.2 (5-19) 11/08/22 11:56 BUN 13 mg/dL (6-20) 11/08/22 11:56 Creatinine 0.8 mg/dL (0.7-1.2) 11/08/22 11:56 GFR Calculation 113.5 mL/min (90-130) 11/08/22 11:56 Glucose 99 mg/dL (65-115) 11/08/22 11:56 Calculated Osmolality 284 mOsm/kg (285-295) L 11/08/22 11:56 Calcium 9.3 mg/dL (8.5-10.5) 11/08/22 11:56 Total Bilirubin 0.2 mg/dL (0.15-1.2) 11/08/22 11:56 AST 16 U/L (0-40) 11/08/22 11:56 ALT 18 U/L (0-41) 11/08/22 11:56 Alkaline Phosphatase 51 U/L (40-130) 11/08/22 11:56 Troponin T Baseline < 6 ng/L (0-15) 11/08/22 22:16 NT-Pro-B Natriuret Pep 36 pg/mL (0-125) 11/08/22 11:56 Total Protein 7.0 g/dL (6.6-8.7) 11/08/22 11:56 Albumin 4.6 g/dL (3.5-5.2) 11/08/22 11:56 Globulin 2.4 g/dL (1.3-4.6) 11/08/22 11:56 All radiology interpretation(s) finalized by discharge Discharge Plan Discharge Patient Disposition: Home Clinical Impression: Chest pain Condition: Stable Prescriptions: No Action Tylenol 325 mg Tablet 325 mg PO BID PRN (Reason: Fever) Discharge Orders: Discharge ED (Routine); Ordered 11/08/22 Ordered By: Gabriel Sahu Patient Instructions: Chest Pain (ED) Activity Restrictions/Additional Instructions: Return for any new or worsening symptoms. Coding Level of Care Code ED Contract Admin for Jimmie Harrison
[2022-11-08 22:58] LABS: Alanine Aminotransferase 18 U/L (0-41); Albumin Level 4.6 g/dL (3.5-5.2); Alkaline Phosphatase 51 U/L (40-130); Anion Gap 13.2 (5-19); Aspartate Amino Transferase 16 U/L (0-40); Blood Urea Nitrogen 13 mg/dL (6-20); Calcium 9.3 mg/dL (8.5-10.5); Carbon Dioxide 25 mmol/L (22-29); Chloride 103 mmol/L (98-107); Creatinine Clr Calc Pharmacy 160.8506; Globulin 2.4 g/dL (1.3-4.6); Glomerular Filtration Rate 113.5 mL/min (90-130); Glucose 99 mg/dL (65-115); NT Pro B Type Natriuretic Pept 36 pg/mL (0-125); Osmolality Calculated 284 mOsm/kg (285-295); Potassium 4.2 mmol/L (3.5-5.1); Sodium 137 mmol/L (136-145); Total Bilirubin 0.2 mg/dL (0.15-1.2)
[2022-11-08 22:59] VITALS: BP 125/82; PULSE 66; RESP 18; O2SAT 98
[2022-11-08 22:59] LABS: D Dimer <= 0.27 ug/mLFEU (0-0.59)
== END 2022-11-08 23:40 | disposition home or self-care (01) ==
PROVIDERS: Emergency Provider Emergency Medicine
DX: R07.9 Chest pain, unspecified (principal); F17.220 Nicotine dependence, chewing tobacco, uncomplicated
CPT/HCPCS: 36415; 71045; 80053; 83880; 84484; 85025; 85378; 93005; 99285

== ENCOUNTER 2023-02-05 09:45 | Outpatient (CLI) | payer OTHER, SELFPAY ==
--- NOTE | 2023-02-05 10:45 | USR_ITS ---
PROCEDURE INFORMATION: Exam: US Abdomen, Limited; Soft Tissue Exam date and time: 02/05/2023 10:01 AM Age: 32 years old Clinical indication: Mass, lump, or swelling; Other: Rlq and luq; Additional info: Abdominal wall masses, evaluate lesions on abdominal wall - suspect lipoma TECHNIQUE: Imaging protocol: US abdomen. Real time ultrasound with image documentation. Limited exam focused on the soft tissues. COMPARISON: No relevant prior studies available. FINDINGS: There is a subcutaneous echogenic lesion that measures 3.8 x 1.2 x 2.5 cm. There is a separate subcutaneous echogenic lesion measuring 1.6 x 1.6 x 0.8 cm. US/US abdomen limited [id number] IMPRESSION: Echogenic subcutaneous lesions suspicious for benign lipomas. CT could be obtained to confirm if clinically warranted.
== END 2023-02-05 09:46 | disposition home or self-care (01) ==
LOC: RAD 09:46
PROVIDERS: PCP Family Medicine; Visit Provider Family Medicine
DX: R22.2 Localized swelling, mass and lump, trunk (principal)
CPT/HCPCS: 76705

== ENCOUNTER 2023-04-13 17:07 | Emergency (ER) | payer OTHER, SELFPAY ==
--- NOTE | 2023-04-13 17:09 | XRR_ITS ---
PROCEDURE INFORMATION: Exam: XR Right Ankle Exam date and time: 04/13/2023 5:28 PM Age: 33 years old Clinical indication: Other: [place] RT ankle pop; Additional info: Injury TECHNIQUE: Imaging protocol: Radiologic exam of the right ankle. Views: 3 or more views. COMPARISON: CR (LOW EXM, ) 04/13/2023 5:26 PM FINDINGS: Bones/joints: Normal. Soft tissues: Normal. XR/XR ankle RT min 3V* [id number] IMPRESSION: No acute findings.
--- NOTE | 2023-04-13 17:09 | XRR_ITS ---
PROCEDURE INFORMATION: Exam: XR Right Foot Exam date and time: 04/13/2023 5:26 PM Age: 33 years old Clinical indication: Other: [place] RT ankle pop; Additional info: Injury felt RT ankle pop TECHNIQUE: Imaging protocol: Radiologic exam of the right foot. Views: 3 or more views. COMPARISON: No relevant prior studies available. FINDINGS: Bones/joints: Normal. Soft tissues: Normal. XR/XR foot RT min 3V* [id number] IMPRESSION: No acute findings.
[2023-04-13 17:11] VITALS: BP 138/79; PULSE 70; RESP 12; TEMP 36.6; O2SAT 98; BMI 25.0
--- NOTE | 2023-04-13 17:21 | W.ED.EXTPRO ---
Documented by User: TAI Michelle 04/13/23 18:09 HPI - Extremity Problem General: Chief complaint: Extremity Injury, Lower Stated complaint: right foot pain Time Seen by Provider: 04/13/23 17:16 Source: patient Mode of arrival: ambulatory Limitations: no limitations History of Present Illness: Patient is a 33-year-old male presents the emergency department complaining of right foot and ankle pain onset today. 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 However, he is unable to describe the direction in which he twisted, he just notes sudden onset of pain afterwards. He has no prior injuries or surgeries to the foot. He notes some swelling and distal tingling, but otherwise denies any numbness, bruising, or any deformities. He has not take anything for pain. Patient states that the pain is all over. He says he has put a little weight since injuring it, but reports significant pain with doing so. MD Complaint: extremity pain (Right ankle), joint swelling (Right ankle) and joint pain (Right ankle) Pain Consistency: constant Location: right Associated symptoms: Deny chest pain, fever(s) or rash Review of Systems General: Reports: 10 or more systems reviewed and unremarkable except in HPI and below Const: Denies: fever(s), chills or fatigue Eyes: Denies: change in vision ENMT: Denies: throat pain, ear or mastoid pain or nasal discharge Card: Denies: chest pain, palpitations, swelling of feet/ankles or lightheadedness Resp: Denies: dyspnea, productive cough or wheezing GI: Denies: abdominal pain, nausea, vomiting, diarrhea or constipation : Denies: flank pain, difficulty urinating, dysuria or urinary frequency Musc: Reports: extremity pain (Right foot), joint pain (Right ankle) and joint swelling (Right ankle); Denies: neck pain or back pain Skin/Breast: Denies: rash Neuro: Reports: sensory changes (Distal RLE); Denies: headache(s), numbness in extremities or weakness in extremities [facility] ED PFSH: Medical History Viral syndrome Chronic migraine without aura, intractable, with status migrainosus Toxic metabolic encephalopathy Sinusitis No pertinent past medical history Meningitis Fibromyositis Impacted third molar tooth Surgical History No pertinent past surgical history No pertinent past surgical history Family History Father Heart disease, Onset Age: 40 at age 40 of [place] Family/Other Heart disease, Onset Age: 39 of heart attack Other CAD (coronary artery disease) Hypertension Social History Smoking and tobacco/nicotine status: current every day tobacco/nicotine user smokeless tobacco Smokeless tobacco user: chewing tobacco Smokeless tobacco details: 1 can per 1.5 days Alcohol intake: current Alcohol intake frequency: few times a month Substance/Drug Use: never Physical Exam Const: COMMON NORMALS: no acute distress, patient oriented x3 and no limitations GENERAL APPEARANCE: cooperative, comfortable and well developed ORIENTATION/CONSCIOUSNESS: Yes awake, Yes oriented to person, Yes oriented to place and Yes oriented to time HENMT: COMMON NORMALS: normocephalic, atraumatic and hearing grossly normal bilaterally HEAD & SCALP: normocephalic and atraumatic Eye: COMMON NORMALS: EOMs intact bilaterally and conjunctivae normal CONJUNCTIVA: Yes conjunctivae normal Neck/C-Spine: COMMON NORMALS: full ROM and supple Resp: COMMON NORMALS: normal respiratory effort, No retractions and No use of accessory muscles Extremity: COMMON NORMALS: full ROM OTHER: There is diffuse tenderness noted about the right lateral ankle, but worse at the posterior aspect. No obvious bruising or deformities noted. Pain with range of motion in all directions, but seems to be worse with inversion. Distal neurovascular exam intact. Negative calcaneal squeeze. Negative ankle squeeze. No knee joint abnormalities or tarsal abnormalities. Good pulses. Neuro: COMMON NORMALS: patient oriented x3, moves all extremities, no focal motor deficits and no sensory deficits noted SENSORIUM/ORIENTATION: Yes oriented to person, Yes oriented to place and Yes oriented to time Psych: COMMON NORMALS: mental status grossly normal and Normal thought process present THOUGHT PROCESS: Normal thought process present Skin: COMMON NORMALS: no rashes or lesions noted GENERAL SKIN EXAM: no rashes or lesions noted Course Vital Signs: Vital signs: Vital Signs Temperature 97.9 F 04/13/23 17:11 Pulse Rate 76 04/13/23 18:18 Respiratory Rate 12 04/13/23 17:11 Blood Pressure 118/75 04/13/23 18:18 Pulse Oximetry 100 04/13/23 18:18 Oxygen Delivery Me thod Room Air 04/13/23 17:11 MDM - Extremity (Nontraumatic) Medical Decision Making This patient was seen and evaluated in the emergency department today due to a right ankle injury. He has no prior surgical history or injuries to the ankle. On arrival, he stated the pain was too severe for weightbearing. He had not taken anything for pain to that point, and denied medications in the ER. Vitals normal. Exam remarkable for mild to moderate swelling noted at the lateral right malleolus with no obvious deformities. He was diffusely tender, however worse at the posterior right malleolus. X-ray examination of the right foot and ankle failed to demonstrate any acute fractures or other deformities or dislocations. I believe the patient suffered a right low-grade ankle sprain, and will treat patient conservatively with RICE therapy and crutches, with increased weightbearing as tolerated and given instructions for podiatry follow-up. Patient agrees with this plan. Patient discharged home. Lab Data Radiology Impressions Ankle X-Ray 04/13/23 17:09 IMPRESSION: No acute findings. Foot X-Ray 04/13/23 17:09 IMPRESSION: No acute findings. All radiology interpretation(s) finalized by discharge Discharge Plan Discharge Patient Disposition: Home Clinical Impression: Ankle sprain Qualifiers: Encounter type: initial encounter Involved ligament of ankle: unspecified ligament Laterality: right Qualified Code(s): S93.401A - Sprain of unspecified ligament of right ankle, initial encounter Condition: Stable Prescriptions: No Action Tylenol 325 mg Tablet 325 mg PO BID PRN (Reason: Fever) Discharge Orders: Discharge ED (Routine); Ordered 04/13/23 Ordered By: Sergei Donahue Referrals: Chuy Swain MD [Primary Care Provider] - Discharge Diet: Usual diet Discharge Activity: Use walker/crutches as instructed Patient Instructions: Ankle Sprain (ED) Activity Restrictions/Additional Instructions: Rest, ice, compression, and elevation. Follow-up with podiatry this week. Return with any new or worsening symptoms. Coding Level of Care Code ED Learning Support Resource Room Teacher for Chg Fwd Documented by User: Marty Jackson DO 04/14/23 05:51 HPI - Extremity Problem General: Chief complaint: Extremity Injury, Lower Stated complaint: right foot pain Time Seen by Provider: 04/13/23 17:16 PFS ED PFSH: Medical History Viral syndrome Chronic migraine without aura, intractable, with status migrainosus Toxic metabolic encephalopathy Sinusitis No pertinent past medical history Meningitis Fibromyositis Impacted third molar tooth Surgical History No pertinent past surgical history No pertinent past surgical history Family History Father Heart disease, Onset Age: 40 at age 40 of [place] Family/Other Heart disease, Onset Age: 39 of heart attack Other CAD (coronary artery disease) Hypertension Social History Smoking and tobacco/nicotine status: current every day tobacco/nicotine user smokeless tobacco Smokeless tobacco user: chewing tobacco Smokeless tobacco details: 1 can per 1.5 days Alcohol intake: current Alcohol intake frequency: few times a month Substance/Drug Use: never Course Vital Signs: Vital signs: Vital Signs Temperature 97.9 F 04/13/23 17:11 Pulse Rate 76 04/13/23 18:18 Respiratory Rate 12 04/13/23 17:11 Blood Pressure 118/75 04/13/23 18:18 Pulse Oximetry 100 04/13/23 18:18 Oxygen Delivery Me thod Room Air 04/13/23 17:11 MDM - Extremity (Nontraumatic) Medical Decision Making This patient was seen and evaluated in the emergency department today due to a right ankle injury. He has no prior surgical history or injuries to the ankle. On arrival, he stated the pain was too severe for weightbearing. He had not taken anything for pain to that point, and denied medications in the ER. Vitals normal. Exam remarkable for mild to moderate swelling noted at the lateral right malleolus with no obvious deformities. He was diffusely tender, however worse at the posterior right malleolus. X-ray examination of the right foot and ankle failed to demonstrate any acute fractures or other deformities or dislocations. I believe the patient suffered a right low-grade ankle sprain, and will treat patient conservatively with RICE therapy and crutches, with increased weightbearing as tolerated and given instructions for podiatry follow-up. Patient agrees with this plan. Patient discharged home. Chart reviewed and patient discussed with midlevel. Agree with assessment and plan. Lab Data Radiology Impressions Ankle X-Ray 04/13/23 17:09 IMPRESSION: No acute findings. Foot X-Ray 04/13/23 17:09 IMPRESSION: No acute findings. Discharge Plan Discharge Patient Disposition: Home Clinical Impression: Ankle sprain Qualifiers: Encounter type: initial encounter Involved ligament of ankle: unspecified ligament Laterality: right Qualified Code(s): S93.401A - Sprain of unspecified ligament of right ankle, initial encounter Condition: Stable Prescriptions: No Action Tylenol 325 mg Tablet 325 mg PO BID PRN (Reason: Fever) Discharge Orders: Discharge ED (Routine); Ordered 04/13/23 Ordered By: Sergei Donahue Referrals: Chuy Swain MD [Primary Care Provider] - Discharge Diet: Usual diet Discharge Activity: Use walker/crutches as instructed Patient Instructions: Ankle Sprain (ED) Activity Restrictions/Additional Instructions: Rest, ice, compression, and elevation. Follow-up with podiatry this week. Return with any new or worsening symptoms. Coding Level of Care Code ED Learning Support Resource Room Teacher for Jimmie Harrison
[2023-04-13 18:18] VITALS: BP 118/75; PULSE 76; O2SAT 100
--- NOTE | 2023-04-14 07:24 | DCPLANNER ---
Message sent to Ortho for Follw up appointment
== END 2023-04-13 18:19 | disposition home or self-care (01) ==
PROVIDERS: Emergency Provider Physician Assistant; PCP Family Medicine
DX: S93.401A Sprain of unspecified ligament of right ankle, initial encounter (principal); F17.220 Nicotine dependence, chewing tobacco, uncomplicated; X50.1XXA Overexertion from prolonged static or awkward postures, initial encounter
CPT/HCPCS: 73610; 73630; 99283; E0114

== ENCOUNTER 2023-10-05 19:36 | Emergency (ER) | payer OTHER, SELFPAY ==
[2023-10-05 19:40] VITALS: BP 140/73; PULSE 80; RESP 14; TEMP 36.9; O2SAT 97
--- NOTE | 2023-10-05 20:09 | XRR_ITS ---
PROCEDURE INFORMATION: Exam: XR Left Knee Exam date and time: 10/05/2023 8:18 PM Age: 33 years old Clinical indication: Injury or trauma; Other: Hit on lt knee; Blunt trauma; Left; Additional info: Trauma, pain above patella TECHNIQUE: Imaging protocol: Radiologic exam of the left knee. Views: 3 views. COMPARISON: No relevant prior studies available. FINDINGS: Bones/joints: No acute fracture or subluxation. Small knee joint effusion. Soft tissues: Normal. XR/XR knee LT 3V* [id number] IMPRESSION: No acute fractures or subluxations. Small knee joint effusion.
[2023-10-05 20:10] VITALS: BP 129/71; PULSE 82; O2SAT 98
--- NOTE | 2023-10-05 20:15 | ED_ITS ---
Documented by User: TAI Michelle 10/05/23 21:00 HPI - Extremity Problem General: Chief complaint: Extremity Injury, Lower Stated complaint: left leg injury Time Seen by Provider: 10/05/23 19:46 Source: patient Mode of arrival: ambulatory Limitations: no limitations History of Present Illness: Patient is a 33-year-old male presents the emergency department complaining of injury to left knee onset prior to arrival. This is a Worker's Comp. injury, patient states he was struck by 8 inch thick metal pipe that was dropped on his leg. He reports ambulating normally, though with pain. Pain is noted to be just superior to the left patella, however patella is also causing him some pain. No distal neurovascular symptoms reported. No obvious signs of trauma on exam. There is abrasion reported where the pipe hit him, and he is noting some distal femur pain. No other symptoms reported at this time. Has not taken anything for pain at this time. MD Complaint: joint pain Onset (ago): minute(s) Pain Consistency: constant Location: left and knee Radiation: proximal Exacerbating factors: weight bearing Associated symptoms: Deny chest pain, fever(s) or rash Related Data Home Medications Medication Instructions Recorded Confirmed acetaminophen 325 mg tablet 325 mg PO BID PRN Fever 02/19/22 08/25/23 (Tylenol) Allergies Allergy/AdvReac Type Severity Reaction Status Date / Time Sulfa (Sulfonamide Allergy Unknown Verified 10/05/23 19:44 Antibiotics) Review of Systems General: Reports: 10 or more systems reviewed and unremarkable except in HPI and below Const: Denies: fever(s) or chills Card: Denies: chest pain Resp: Denies: dyspnea or productive cough GI: Denies: abdominal pain, nausea, vomiting or diarrhea : Denies: flank pain Musc: Reports: extremity pain and joint pain; Denies: neck pain, back pain, extremity swelling, joint swelling, joint redness, joint warmth, limited range of motion or muscle weakness Skin/Breast: Denies: rash Neuro: Denies: headache(s), numbness in extremities or weakness in extremities [facility] ED PFSH: Medical History Viral syndrome Chronic migraine without aura, intractable, with status migrainosus Toxic metabolic encephalopathy Sinusitis No pertinent past medical history Meningitis Fibromyositis Impacted third molar tooth Surgical History No pertinent past surgical history No pertinent past surgical history Family History Father Heart disease, Onset Age: 40 at age 40 of [place] Family/Other Heart disease, Onset Age: 39 of heart attack Other CAD (coronary artery disease) Hypertension Social History Smoking and tobacco/nicotine status: former use of tobacco/nicotine Alcohol intake: current Alcohol intake frequency: few times a month Substance/Drug Use: never Physical Exam Const: COMMON NORMALS: no acute distress, patient oriented x3, no limitations, healthy appearing, alert and well nourished HENMT: COMMON NORMALS: normocephalic and atraumatic HEAD & SCALP: normocephalic and atraumatic Neck/C-Spine: COMMON NORMALS: full ROM, supple and no meningeal signs Resp: COMMON NORMALS: normal respiratory effort, No use of accessory muscles and clear to auscultation bilaterally AUSCULTATION: clear to auscultation bilaterally Cardio: COMMON NORMALS: regular rate and regular rhythm RATE: regular rate RHYTHM: regular rhythm Extremity: COMMON NORMALS: normal to inspection, full ROM, capillary refill normal, no joint enlargement and no clubbing, cyanosis or edema NARRATIVE EXTREMITY EXAM: Tenderness to palpation at the superior portion of the left patella. Also some tenderness to palpation over the quad tendon on the left side. No appreciable joint effusion. No joint line tenderness or joint laxity. Distal neurovascular status intact with good distal pulses. Neuro: COMMON NORMALS: patient oriented x3, moves all extremities, no focal motor deficits and no sensory deficits noted SENSORIUM/ORIENTATION: Yes alert MENINGEAL SIGNS: Yes no meningeal signs Skin: NARRATIVE SKIN EXAM: Small linear abrasion noted to left distal anterior thigh Course Vital Signs: Vital signs: Vital Signs Temperature 98.4 F 10/05/23 19:40 Pulse Rate 76 10/05/23 21:02 Respiratory Rate 14 10/05/23 19:40 Blood Pressure 131/72 10/05/23 21:02 Pulse Oximetry 97 10/05/23 21:02 MDM - Extremity (Nontraumatic) Medical Decision Making Patient presents for evaluation of trauma to the left knee while at work. This is a workers comp. Patient had abrasion just superior to the left patella where he was hit with an 8 inch thick metal pipe that was dropped on him. However his knee examination overall unremarkable, though there was some tenderness to palpation of the superior aspect of the left patella. Because of this an x-ray was obtained that did not show any acute findings other than a potential small joint effusion. I have no concern at this time for any underlying bony injury or ligament/tendon injury, and patient is discharged home with instructions for RICE therapy and weightbearing as tolerated. For any continuation of pain he is to follow-up with her primary care provider for further imaging such as an MRI. Also instructed to use ice at home as well as alternating Tylenol and ibuprofen, and will be discharged home at this time. Lab Data Radiology Impressions Knee X-Ray 10/05/23 20:09 IMPRESSION: No acute fractures or subluxations. Small knee joint effusion. All radiology interpretation(s) finalized by discharge Discharge Plan Discharge Patient Disposition: Home Clinical Impression: Contusion of knee, left Qualifiers: Encounter type: initial encounter Qualified Code(s): S80.02XA - Contusion of left knee, initial encounter Condition: Stable Prescriptions: No Action Tylenol 325 mg Tablet 325 mg PO BID PRN (Reason: Fever) Discharge Orders: Discharge ED (Routine); Ordered 10/05/23 Ordered By: Sergei Donahue Referrals: Chuy Swain MD [Primary Care Provider] - Discharge Diet: Usual diet Discharge Activity: Increase activity as tolerated Patient Instructions: Contusion in Adults (ED), Knee Pain (ED) Activity Restrictions/Additional Instructions: Ice to the area. You may alternate Tylenol and ibuprofen at home. Gentle range of motion exercises as tolerated. Increase your weightbearing at home and follow-up with primary care provider as needed Coding Level of Care Code ED Door [employer] Documented by User: Marty Jackson DO 10/08/23 00:41 HPI - Extremity Problem General: Chief complaint: Extremity Injury, Lower Stated complaint: left leg injury Time Seen by Provider: 10/05/23 19:46 Related Data Home Medications Medication Instructions Recorded Confirmed acetaminophen 325 mg tablet 325 mg PO BID PRN Fever 02/19/22 08/25/23 (Tylenol) Allergies Allergy/AdvReac Type Severity Reaction Status Date / Time Sulfa (Sulfonamide Allergy Unknown Verified 10/05/23 19:44 Antibiotics) PFS ED PFSH: Medical History Viral syndrome Chronic migraine without aura, intractable, with status migrainosus Toxic metabolic encephalopathy Sinusitis No pertinent past medical history Meningitis Fibromyositis Impacted third molar tooth Surgical History No pertinent past surgical history No pertinent past surgical history Family History Father Heart disease, Onset Age: 40 at age 40 of [place] Family/Other Heart disease, Onset Age: 39 of heart attack Other CAD (coronary artery disease) Hypertension Social History Smoking and tobacco/nicotine status: former use of tobacco/nicotine Alcohol intake: current Alcohol intake frequency: few times a month Substance/Drug Use: never Course Vital Signs: Vital signs: Vital Signs Temperature 98.4 F 10/05/23 19:40 Pulse Rate 76 10/05/23 21:02 Respiratory Rate 14 10/05/23 19:40 Blood Pressure 131/72 10/05/23 21:02 Pulse Oximetry 97 10/05/23 21:02 MDM - Extremity (Nontraumatic) Medical Decision Making Patient presents for evaluation of trauma to the left knee while at work. This is a workers comp. Patient had abrasion just superior to the left patella where he was hit with an 8 inch thick metal pipe that was dropped on him. However his knee examination overall unremarkable, though there was some tenderness to palpation of the superior aspect of the left patella. Because of this an x-ray was obtained that did not show any acute findings other than a potential small joint effusion. I have no concern at this time for any underlying bony injury or ligament/tendon injury, and patient is discharged home with instructions for RICE therapy and weightbearing as tolerated. For any continuation of pain he is to follow-up with her primary care provider for further imaging such as an MRI. Also instructed to use ice at home as well as alternating Tylenol and ibuprofen, and will be discharged home at this time. Chart reviewed Lab Data Radiology Impressions Knee X-Ray 10/05/23 20:09 IMPRESSION: No acute fractures or subluxations. Small knee joint effusion. Discharge Plan Discharge Patient Disposition: Home Clinical Impression: Contusion of knee, left Qualifiers: Encounter type: initial encounter Qualified Code(s): S80.02XA - Contusion of left knee, initial encounter Condition: Stable Prescriptions: No Action Tylenol 325 mg Tablet 325 mg PO BID PRN (Reason: Fever) Discharge Orders: Discharge ED (Routine); Ordered 10/05/23 Ordered By: Sergei Donahue Referrals: Chuy Swain MD [Primary Care Provider] - Discharge Diet: Usual diet Discharge Activity: Increase activity as tolerated Patient Instructions: Contusion in Adults (ED), Knee Pain (ED) Activity Restrictions/Additional Instructions: Ice to the area. You may alternate Tylenol and ibuprofen at home. Gentle range of motion exercises as tolerated. Increase your weightbearing at home and follow-up with primary care provider as needed Coding Level of Care Code ED Door [employer] for [employer]
[2023-10-05 21:02] VITALS: BP 131/72; PULSE 76; O2SAT 97
== END 2023-10-05 21:03 | disposition home or self-care (01) ==
PROVIDERS: Emergency Provider Physician Assistant; PCP Family Medicine
DX: S80.02XA Contusion of left knee, initial encounter (principal); S70.312A Abrasion, left thigh, initial encounter; Z87.891 Personal history of nicotine dependence; W20.8XXA Other cause of strike by thrown, projected or falling object, initial encounter; Y99.0 Civilian activity done for income or pay
CPT/HCPCS: 73562; 99283

== ENCOUNTER 2023-10-30 12:30 | Emergency (ER) | payer OTHER, SELFPAY ==
[2023-10-30 12:36] VITALS: BP 138/82; PULSE 83; RESP 16; TEMP 36.9; O2SAT 97; BMI 25.7
--- NOTE | 2023-10-30 12:37 | XR_ITS ---
WS: [id number] 2 views of the left first finger, 10/30/2023 Clinical Data: trauma; thumb Comparison: None. Findings: No fractures or dislocations are seen. The soft tissues are normal. The epiphyses and joint spaces ar e not remarkable. XR/XR finger LT min 2V [id number] Impression: Negative left thumb.
--- NOTE | 2023-10-30 12:38 | ED_ITS ---
HPI - Extremity Injury (Upper) General: Chief Complaint: Wound/Laceration Stated Complaint: laceration Time Seen by Provider: 10/30/23 12:34 Source: patient Mode of arrival: ambulatory Limitations: no limitations History of Present Illness: Patient is a 33-year-old male presents to ED today for evaluation of a left thumb injury that he sustained just prior to arrival after some type of spring cable cord snapped back and struck his left thumb. Last tetanus was over 8 years ago. This is a Worker's Comp. injury as he is an [employer] employee. complaint: injury to: left and finger Onset (ago): minute(s) Other Extremity Injury: Left: fingers (thumb) Other injuries: none Place: work Severity: moderate Relieving factors: none Exacerbating factors: none Context: direct blow and laceration Associated symptoms: Reports no associated symptoms Treatments prior to arrival: bandage Related Data Home Medications Medication Instructions Recorded Confirmed acetaminophen 325 mg tablet 325 mg PO BID PRN Fever 02/19/22 08/25/23 (Tylenol) Previous Rx's Medication Instructions Recorded cephalexin 500 mg capsule 500 mg PO Q6H 7 days #28 caps 10/30/23 Allergies Allergy/AdvReac Type Severity Reaction Status Date / Time Sulfa (Sulfonamide Allergy Unknown Verified 10/05/23 19:44 Antibiotics) Review of Systems Musc: Reports: extremity pain (L thumb) Skin/Breast: Reports: other (laceration L thumb) Neuro: Denies: numbness in extremities or sensory changes [facility] ED PFSH: Medical History Viral syndrome Chronic migraine without aura, intractable, with status migrainosus Toxic metabolic encephalopathy Sinusitis No pertinent past medical history Meningitis Fibromyositis Impacted third molar tooth Surgical History No pertinent past surgical history No pertinent past surgical history Family History Father Heart disease, Onset Age: 40 at age 40 of [place] Family/Other Heart disease, Onset Age: 39 of heart attack Other CAD (coronary artery disease) Hypertension Social History Smoking and tobacco/nicotine status: former use of tobacco/nicotine Alcohol intake: current Alcohol intake frequency: few times a month Substance/Drug Use: never Physical Exam Const: COMMON NORMALS: no acute distress, average body habitus, patient oriented x3, no limitations, healthy appearing, alert and well nourished GENERAL APPEARANCE: cooperative Extremity: COMMON NORMALS: full ROM and capillary refill normal GENERAL: Yes normal exam except as noted LEFT UPPER EXTREMITY: Yes hand & digits (small laceration palmar distal L thumb; another laceration through nail) Left h and and digits: Yes ROM (normal), Yes neurovascular exam (normal) and Yes tendon exam (normal) Neuro: COMMON NORMALS: patient oriented x3, moves all extremities, no focal motor deficits and no sensory deficits noted SENSORIUM/ORIENTATION: Yes alert Skin: NARRATIVE SKIN EXAM: see extremity assessment above Procedures Laceration Laceration 1: Site: hand (thumb) Side (If applicable): left Size (cm): 1.0 Description: irregular Depth: simple, single layer Local Anesthetic: lidocaine 1% (digital block) Amount of anesthesia used (mL): 2.0 Pre-repair: wound explored and irrigated extensively Skin layer closed with: other (Prolene) Size (cm): 4-0 Number of sutures: 2 Technique: simple, interrupted Course Vital Signs: Vital signs: Vital Signs Temperature 98.5 F 10/30/23 12:41 Pulse Rate 83 10/30/23 12:41 Respiratory Rate 16 10/30/23 12:41 Blood Pressure 138/82 10/30/23 12:41 Pulse Oximetry 97 10/30/23 12:41 Oxygen Delivery Me thod Room Air 10/30/23 12:41 MDM - Extremity Injury (Upper) Medical Decision Making Wounds copiously irrigated. Laceration through nail plate but underlying nailbed appears intact. There is no damage at the base. Nail will be left as is for protection. Will place on prophylactic antibiotics. Tetanus was updated. XR radiology report is negative. Personal interpretation showing small non- displaced distal phalanx fx right at tip. This will not require any surgical management. He will follow up with Worker's Comp. Medical Records I reviewed the patient's medical records. Lab Data Radiology Impressions Finger X-Ray 10/30/23 12:37 Impression: Negative left thumb. All radiology interpretation(s) finalized by discharge Discharge Plan Discharge Patient Disposition: Home Clinical Impression: Laceration of thumb, left Qualifiers: Encounter type: initial encounter Damage to nail status: with damage Foreign body presence: without foreign body Qualified Code(s): S61.112A - Laceration without foreign body of left thumb with damage to nail, initial encounter Condition: Stable Prescriptions: New cephalexin 500 mg capsule 500 mg PO Q6H 7 Days Qty: 28 0RF No Action Tylenol 325 mg Tablet 325 mg PO BID PRN (Reason: Fever) Discharge Orders: Discharge ED (Routine); Ordered 10/30/23 Ordered By: Heather Moreno Referrals: Chuy Swain MD [Primary Care Provider] - Activity Restrictions/Additional Instructions: Keep wound/laceration clean with warm soap and water twice daily. Monitor for signs of infection such as redness, swelling, increased pain, or drainage. Please seek medical re-evaluation if these occur. If you received sutures today these will need to be removed. The provider should have discussed with you the length of time until removal-7 days. Keep the finger nail filed down to keep it from getting caught. Please follow up with Worker's Comp as directed by Human Resources. 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
[2023-10-30 12:41] VITALS: BP 138/82; PULSE 83; RESP 16; TEMP 36.9; O2SAT 97
[2023-10-30] MEDS: tetanus-dipt-pertussis 0.5 mL SDV IM (12:53)
--- NOTE | 2023-10-30 13:00 | PC.NURSE ---
@ 1300 [facility] tech irrigated wound with sterile water and betadine mix, Using 60ml syringe and gauze.
[2023-10-30 13:10] VITALS: BP 128/90; PULSE 78; RESP 16; O2SAT 98
[2023-10-30 13:30] VITALS: BP 139/96; PULSE 85; RESP 16; O2SAT 96
[2023-10-30 13:40] VITALS: BP 132/84; PULSE 88; RESP 16; O2SAT 98
== END 2023-10-30 13:40 | disposition home or self-care (01) ==
PROVIDERS: Emergency Provider Physician Assistant; PCP Family Medicine
DX: S61.112A Laceration without foreign body of left thumb with damage to nail, initial encounter (principal); Z87.891 Personal history of nicotine dependence; W20.8XXA Other cause of strike by thrown, projected or falling object, initial encounter; Z23 Encounter for immunization
CPT/HCPCS: 12001; 73140; 90471; 90715; 99283